=== PATIENT | female | born 1935 | race Caucasian/White ===

== ENCOUNTER 2019-09-20 16:11 | Inpatient (IN) | payer OTHER ==
--- NOTE | 2019-09-20 17:33 | PDOC ---
History of Present Illness - History of Present Illness Initial Comments: 09/20/19 18:10 Ms. Pat is an y/o F w/PMH of HTN, OA, peripheral neuropathy, spinal stenosis , and "parkinson's- like" tremor presents to the ER w/ chills and worsening tremor. The patient states she was in her usual state of health until this afternoon around 12pm when she suddenly felt very cold and her tremors became much worse to the point where she couldn't even speak. She called her reading professor, Dr. Salazar, who recommended she come to the hospital. The patient states she felt feverish, but on checking her temperature she was afebrile. She also endorses some post nasal drip. She denies recent sick contacts, cough, throat pain, nausea, vomiting, stomach pain, cough, SOB, chest pain, dizziness or heart palpiations. 09/20/19 18:16 <Sofi Ramirez - Last Filed: 09/21/19 00:30> <Eva Barrett - Last Filed: 09/21/19 00:57> - General Chief Complaint: Blood Pressure Problem Stated Complaint: HIGH BP Time Seen by Provider: 09/20/19 17:33 Past History - Travel Traveled outside of the country in the last 30 days: No Close contact w/someone who was outside of country & ill: No - Past Medical History CVA: Yes (TIA) COPD: No HTN: Yes Hypercholesterolemia: Yes - Surgical History Abdominal Surgery: Yes Cholecystectomy: Yes - Immunization History Immunization Up to Date: Yes - Psycho Social/Smoking Cessation Hx Smoking Status: No Smoking History: Never smoked Have you smoked in the past 12 months: No Number of Cigarettes Smoked Daily: 0 Information on smoking cessation initiated: No Hx Alcohol Use: No Drug/Substance Use Hx: No Substance Use Type: None Hx Substance Use Treatment: No <Sofi Ramirez - Last Filed: 09/21/19 00:30> <Eva Barrett - Last Filed: 09/21/19 00:57> - Past Medical History Allergies/Adverse Reactions: Allergies Allergy/AdvReac Type Severity Reaction Status Date / Time diazepam [From Valium] AdvReac HYPER/ANXIO Verified 01/24/18 10:42 US Home Medications: Ambulatory Orders Hydrochlorothiazide 25 mg PO DAILY 08/21/12 Metoprolol Succinate [Toprol XL -] 25 mg PO DAILY 08/21/12 Simvastatin [Zocor -] 20 mg PO HS 08/21/12 Diclofenac Sodium 100 mg PO BID 01/24/18 Gabapentin [Neurontin -] 600 mg PO DAILY 01/24/18 Apixaban [Eliquis] 5 mg PO TID 09/20/19 Review of Systems - Review of Systems Able to Perform ROS?: Yes Is the patient limited Nepali proficient: No Constitutional: Yes: Chills, Malaise. No: Diaphoresis, Fever HEENTM: No: Eye Pain, Recent change in vision, Throat Pain Respiratory: No: Cough, Shortness of Breath Cardiac (ROS): No: Chest Pain, Lightheadedness, Palpitations ABD/GI: No: Abdominal Distended, Abd. Pain w/ defecation, Constipated, Diarrhea : No: Burning, Dysuria, Discharge, Flank Pain, Hematuria Musculoskeletal: No: Back Pain, Muscle Pain, Muscle Weakness Integumentary: No: Bruising, Change in Color, Change in Hair/Nails Neurological: No: Headache, Numbness, Paresthesia, Seizure, Tingling Endocrine: No: Flushing, Intolerance to Cold, Intolerance to Heat All Other Systems: Reviewed and Negative <Sofi Ramirez - Last Filed: 09/21/19 00:30> *Physical Exam - Vital Signs Last Vital Signs Temp Pulse Resp BP Pulse Ox 98.2 F 103 H 17 147/84 100 09/20/19 16:45 09/20/19 16:45 09/20/19 16:45 09/20/19 16:45 09/20/19 16:45 - Physical Exam General Appearance: Yes: Nourished, Appropriately Dressed, Obese. No: Apparent Distress HEENT: positive: DORITA, Normal ENT Inspection, Normal Voice, Pharynx Normal Neck: positive: Trachea midline, Supple. negative: Tender Respiratory/Chest: positive: Lungs Clear, Normal Breath Sounds. negative: Respiratory Distress, Accessory Muscle Use, Crackles, Rales, Wheezing Cardiovascular: positive: S1, S2, Tachycardia, Irregularly Irregular. negative : Murmur Gastrointestinal/Abdominal: positive: Normal Bowel Sounds, Soft. negative: Tender, Distended, Guarding, Rebound Musculoskeletal: positive: Normal Inspection. negative: CVA Tenderness Extremity: positive: Normal Capillary Refill, Normal Range of Motion, Tender, Pedal Edema (1+ pitting edema to the mid peter bilaterally, skin with venous stasis changes), Calf Tenderness (bilaterally to palpation), Other Integumentary: positive: Normal Color, Dry, Warm, Other (venous stasis changes in bilateral lower extremity) Neurologic: positive: orchestrator II-XII NML intact, Fully Oriented, Alert, Normal Mood/ Affect, Normal Response <Sofi Ramirez - Last Filed: 09/21/19 00:30> - Vital Signs Last Vital Signs Temp Pulse Resp BP Pulse Ox 98.8 F 116 H 18 113/77 95 09/20/19 23:07 09/20/19 23:07 09/20/19 23:07 09/21/19 00:05 09/20/19 23:07 <Eva Barrett - Last Filed: 09/21/19 00:57> ED Treatment Course - LABORATORY CBC & Chemistry Diagram: 09/20/19 17:35 09/20/19 17:35 <Sofi Ramirez - Last Filed: 09/21/19 00:30> - LABORATORY CBC & Chemistry Diagram: 09/20/19 17:35 09/20/19 17:35 - ADDITIONAL ORDERS Additional order review: Laboratory Results 09/20/19 09/20/19 09/20/19 21:15 17:35 17:35 PT with INR INR PTT (Actin FS) Sodium 138 Potassium 3.9 Chloride 101 Carbon Dioxide 27 Anion Gap 10 BUN 19.2 H Creatinine 0.9 Est GFR (CKD-EPI)AfAm 68.05 Est GFR (CKD-EPI)NonAf 58.71 Random Glucose 104 Calcium 9.4 Total Bilirubin 1.0 AST 29 ALT 19 Alkaline Phosphatase 92 B-Natriuretic Peptide 907.5 H Total Protein 7.1 Albumin 3.6 Urine Color Yellow Urine Appearance Clear Urine pH 5.5 D Ur Specific [place] 1.017 Urine Protein Negative Urine Glucose (UA) Negative Urine Ketones Trace H Urine Blood Negative Urine Nitrite Negative Urine Bilirubin Negative Urine Urobilinogen 1.0 Ur Leukocyte Esterase Negative 09/20/19 17:35 PT with INR 16.10 H INR 1.36 H PTT (Actin FS) 36.8 H Sodium Potassium Chloride Carbon Dioxide Anion Gap BUN Creatinine Est GFR (CKD-EPI)AfAm Est GFR (CKD-EPI)NonAf Random Glucose Calcium Total Bilirubin AST ALT Alkaline Phosphatase B-Natriuretic Peptide Total Protein Albumin Urine Color Urine Appearance Urine pH Ur Specific [place] Urine Protein Urine Glucose (UA) Urine Ketones Urine Blood Urine Nitrite Urine Bilirubin Urine Urobilinogen Ur Leukocyte Esterase 09/20/19 17:35 RBC 5.15 MCV 76.8 L MCHC 31.7 L RDW 16.5 H MPV 9.5 Neutrophils % 92.7 H D Lymphocytes % 4.4 L D Monocytes % 2.3 L Eosinophils % 0.1 D Basophils % 0.5 - Medications Given in the ED: ED Medications Discontinued Medications Generic Name Dose Route Start Last Admin Trade Name Freq PRN Reason Stop Dose Admin Diltiazem HCl 10 mg 09/20/19 17:37 09/20/19 17:47 Cardizem Injection - IVPUSH 09/20/19 17:38 Not Given ONCE ONE Diltiazem HCl 20 mg 09/20/19 17:45 09/20/19 17:47 Cardizem Injection - IVPUSH 09/20/19 17:46 20 mg ONCE ONE Administration <Eva Barrett - Last Filed: 09/21/19 00:57> Medical Decision Making - Medical Decision Making 09/20/19 19:29 Ms. Pat is an y/o F w/PMH of HTN, OA, peripheral neuropathy, spinal stenosis , and "parkinson's- like" tremor presents to the ER w/ chills and worsening tremor. Pt found to be in Afib with RVR, concern for infectious process given HPI. Will obtain - CBC - CMP - PT/PTT/INR - BNP - UA/ Ucx - EKG - CXR - 20mg IVPush cardizem for afib 09/20/19 19:37 09/21/19 00:29 - CXR unremarkable UA without concern for UTI, labs without evidence of infection. Pt likely to be placed on tele-obs to monitor her afib with RVR. <Sofi Ramirez - Last Filed: 09/21/19 00:30> Discharge <Sofi Ramirez - Last Filed: 09/21/19 00:30> - Discharge Information Problems reviewed: Yes - Admission Yes <Eva Barrett - Last Filed: 09/21/19 00:57> - Discharge Information Clinical Impression/Diagnosis: CHF (congestive heart failure), Atrial fibrillation with RVR - Follow up/Referral Referrals: Kathi Melo [Primary Care Provider] - - Patient Discharge Instructions - Post Discharge Activity
[2019-09-20] MEDS ORDERED: dilTIAZem HCL 50 MG/10 ML - 10 ML VIAL IVPUSH ONE ×2 (17:37→17:45)
[2019-09-20] MEDS ORDERED: dilTIAZem HCL 125 MG/25 ML - 25 ML VIAL ONE (17:42)
[2019-09-20 17:55] LABS: BASO % 0.5 % (0-2.0); EOS % 0.1 % (0-4.5); HEMATOCRIT 39.5 % (32.4-45.2); HEMOGLOBIN 12.5 GM/dL (10.7-15.3); LYMPH % 4.4 % (8-40); MCH 24.3 pg (25.7-33.7); MCHC 31.7 g/dl (32.0-36.0); MEAN CELL VOLUME 76.8 fl (80-96); MEAN PLT VOLUME 9.5 fl (7.5-11.1); MONO % 2.3 % (3.8-10.2); NEUT % 92.7 % (42.8-82.8); PLATELET COUNT 277 K/MM3 (134-434); RBC 5.15 M/mm3 (3.60-5.2); RDW 16.5 % (11.6-15.6); WHITE BLOOD COUNT 9.1 K/mm3 (4.0-10.0)
[2019-09-20 18:09] LABS: INR 1.36 (0.83-1.09); PROTHROMBIN TIME (PATIENT) 16.1 SEC (9.7-13.0)
[2019-09-20 18:11] LABS: ACTIVATED PTT 36.8 SECONDS (25.2-36.5)
[2019-09-20 18:44] LABS: ALBUMIN 3.6 g/dl (3.4-5.0); BLOOD UREA NITROGEN 19.2 mg/dL (7-18); CALCIUM 9.4 mg/dL (8.5-10.1); CREATININE 0.9 mg/dL (0.55-1.3); POTASSIUM 3.9 mmol/L (3.5-5.1); TOT PROT 7.1 g/dl (6.4-8.2)
--- NOTE | 2019-09-20 19:09 | PDOC ---
Documentation entered by Domingo Goodwin SCRIBE, acting as scribe for Eva Barrett MD. Eva Barrett MD: This documentation has been prepared by the Buddy posadas Daniel, SCRIBE, under my direction and personally reviewed by me in its entirety. I confirm that the documentation accurately reflects all work, treatment, procedures, and medical decision making performed by me. Attending Attestation - Resident Resident Name: Sofi Ramirez - ED Attending Attestation I have performed the following: I have examined & evaluated the patient, The case was reviewed & discussed with the resident, I agree w/resident's findings & plan, Exceptions are as noted - HPI HPI: 09/20/19 18:25 The patient is an 84 year old female with a past medical history of HTN, spinal stenosis, OA, and tremors here today for evaluation of chills and worsening tremors. The patient reports that around noon today she began to feel chills, her baseline tremor became much more severe, and she had some generalized weakness. She states that she called Dr. Odell who advised her to come to the ER for evaluation. Patient denies headache, lightheadedness. Denies fever. Denies chest pain, shortness of breath. Denies nausea, vomiting, diarrhea, abdominal pain. Allergies: diazepam PCP: Kathi Melo [employer]cher Aircraft: Christiano Odell - Physicial Exam PE: 09/20/19 19:06 awake alert dry mucous membranes. lungs clear bilat heart irreg tachycardia. no mrg abd soft nt nd ext bilat pitting edema. 3+ cool. 1 + dp pulses biat. nuero alert oriented. - Medical Decision Making 09/20/19 19:06 84 yo F h/o afib, htn hld venous stasis baseine tremor here with worsening shakes, chills, fatigue and decreased po intake, denies cough no fver. no abd pain no vomiting. denies urinary complaints. leg are baseline swollen. today on arrival to ED pt found to be in AFib with RVR. differential infection such as uti, pna, rigors. worsening tremor. electrolyte abnoramlity mi. plan ekg labs trop cxr ua . rectal temp. pt with afib with RVR given 20 mg IV diltiazem for heart rate 148 improvd to 107 . awaiting labs results. will likely nee to be admitted to telemetry. Heart Score/ECG Review #1 General ECG Interpretation: Normal Intervals, No acute ischemic changes Compared to previous ECG there are: Other (afib r with RVR rate 140 bpm, no st t wave changes.)
[2019-09-20 19:15] LABS: ANISOCYTOSIS 1+; PLATELET ESTIMATE NORMAL
[2019-09-20 21:28] LABS: PH,URINE 5.5 (5.0-8.0); URINE APPEARANCE CLEAR; URINE BILIRUBIN NEGATIVE (NEGATIVE); URINE COLOR YELLOW; URINE GLUCOSE (UA) NEGATIVE (NEGATIVE); URINE KETONE TRACE (NEGATIVE); URINE LEUK ESTERASE NEGATIVE (NEGATIVE); URINE NITRITE NEGATIVE (NEGATIVE); URINE PROTEIN NEGATIVE (NEGATIVE)
--- NOTE | 2019-09-20 23:29 | PN ---
Teaching Attending Note Name of Resident: Zain Greer ATTENDING PHYSICIAN STATEMENT I saw and evaluated the patient. I reviewed the resident's note and discussed the case with the resident. I agree with the resident's findings and plan as documented. SUBJECTIVE: 84-year-old woman with a history of atrial fibrillation on anticoagulation hypertension, osteoarthritis, peripheral neuropathy, spinal stenosis who is complaining of chills and generalized weakness which started on 09/20 in the afternoon. Patient presented to hospital and was found to be afebrile however she was also found to be tachycardic OBJECTIVE: Last Vital Signs Temp Pulse Resp BP Pulse Ox 97.9 F 101 H 18 144/66 96 09/21/19 04:34 09/21/19 04:34 09/21/19 04:34 09/21/19 04:34 09/21/19 04:34 GENERAL: Well developed, well nourished. Awake and alert. No acute distress.Appears nontoxic HEENT: Normocephalic, atraumatic. PERRLA, EOMI. No conjunctival pallor. Sclera are non- icteric. Moist mucous membranes. Oropharynx is clear. NECK: Supple. Full ROM. No JVD. Carotid pulses 2+ and symmetric, without bruits. No thyromegaly. No lymphadenopathy. CARDIOVASCULAR: Irregularly irregular, tachycardia, no murmurs appreciated PULMONARY: No evidence of respiratory distress. Lungs clear to auscultation bilaterally. No wheezing, rales or rhonchi. ABDOMINAL: Soft. Non-tender. Non-distended. No rebound or guarding. No organomegaly. Normoactive bowel sounds. MUSCULOSKELETAL Normal range of motion at all joints. No bony deformities or tenderness. No CVA tenderness. EXTREMITIES: No cyanosis. No clubbing. No edema. No calf tenderness. SKIN: Warm and dry. Normal capillary refill. No rashes. No jaundice. PSYCHIATRIC: Cooperative. Good eye contact. Appropriate mood and affect. Abnormal Lab Results 09/20/19 09/20/19 09/20/19 17:35 17:35 17:35 MCV 76.8 L MCH 24.3 L MCHC 31.7 L RDW 16.5 H Absolute Neuts (auto) 8.5 H Neutrophils % 92.7 H D Neutrophils % (Manual) 95.0 H Lymphocytes % 4.4 L D Lymphocytes % (Manual) 1.0 L Monocytes % 2.3 L Monocytes % (Manual) 2 L PT with INR 16.10 H INR 1.36 H PTT (Actin FS) 36.8 H BUN 19.2 H B-Natriuretic Peptide Urine Ketones 09/20/19 09/20/19 17:35 21:15 MCV MCH MCHC RDW Absolute Neuts (auto) Neutrophils % Neutrophils % (Manual) Lymphocytes % Lymphocytes % (Manual) Monocytes % Monocytes % (Manual) PT with INR INR PTT (Actin FS) BUN B-Natriuretic Peptide 907.5 H Urine Ketones Trace H Imaging studies reviewed ASSESSMENT AND PLAN: A. fib with RVRrate is better controlled after Cardizem IV push Would continue home dose Eliquis Monitor heart rate closely Resume metoprolol Resume all chronic medications
--- NOTE | 2019-09-21 00:47 | HP ---
CHIEF COMPLAINT: SOB+ increasing tremors PCP: HISTORY OF PRESENT ILLNESS: Pt is an 84 y/o F with a significant PMH of HTN, OA, peripheral neuropathy, spinal stenosis, and " Parkinson's like tremor" who presented to [facility] due to sudden onset chills and worsening tremor. Pt abruptly began to experience chills and an exacerbation of her tremor around noon today. Pt called her High Lift Mule Operator (Dr Odell) who advised her to come to our emergency department for further work-up and treatment. Pt endorses a headache. Denies chest pain, shortness of breath, nausea/vomiting, LOC, or recent illness. ER course was notable for: (1) afib r with RVR rate 140 bpm, no st t wave changes (2) Cardizem 20 mg IVPUSH given to pt (3) PAST MEDICAL HISTORY: as above PAST SURGICAL HISTORY: Social History: Smoking: Denies Alcohol: Denies Drugs: denies Allergies diazepam [From Valium] Adverse Reaction (Verified 01/24/18 10:42) HYPER/ANXIOUS HOME MEDICATIONS: Home Medications Medication Instructions Recorded Hydrochlorothiazide 25 mg PO DAILY 08/21/12 Metoprolol Succinate [Toprol XL -] 25 mg PO DAILY 08/21/12 Simvastatin [Zocor -] 20 mg PO HS 08/21/12 Diclofenac Sodium 100 mg PO BID 01/24/18 Gabapentin [Neurontin -] 600 mg PO DAILY 01/24/18 Apixaban [Eliquis] 5 mg PO TID 09/20/19 REVIEW OF SYSTEMS CONSTITUTIONAL: present: chills HEENT: Absent: rhinorrhea, nasal congestion, throat pain, throat swelling, difficulty swallowing, mouth swelling, ear pain, eye pain, visual changes CARDIOVASCULAR: Absent: chest pain, syncope, palpitations, irregular heart rate, lightheadedness , peripheral edema RESPIRATORY: Absent: cough, shortness of breath, dyspnea with exertion, orthopnea, wheezing, stridor, hemoptysis GASTROINTESTINAL: Absent: abdominal pain, abdominal distension, nausea, vomiting, diarrhea, constipation, melena, hematochezia GENITOURINARY: Absent: dysuria, frequency, urgency, hesitancy, hematuria, flank pain, genital pain MUSCULOSKELETAL: Absent: myalgia, arthralgia, joint swelling, back pain, neck pain SKIN: Absent: rash, itching, pallor HEMATOLOGIC/IMMUNOLOGIC: Absent: easy bleeding, easy bruising, lymphadenopathy, frequent infections ENDOCRINE: Absent: unexplained weight gain, unexplained weight loss, heat intolerance, cold intolerance NEUROLOGIC: Absent: headache, focal weakness or paresthesias, dizziness, unsteady gait, seizure, mental status changes, bladder or bowel incontinence PSYCHIATRIC: Absent: anxiety, depression, suicidal or homicidal ideation, hallucinations. PHYSICAL EXAMINATION Vital Signs - 24 hr 09/20/19 09/20/19 09/20/19 16:45 18:02 18:15 Temperature 98.2 F 98.6 F 98.6 F Pulse Rate 103 H Pulse Rate [ 98 H Apical] Pulse Rate [ Right Radial] Respiratory 17 17 Rate Blood Pressure 147/84 Blood Pressure [Left Arm] Blood Pressure 143/73 [Right Arm] O2 Sat by Pulse 100 99 Oximetry (%) 09/20/19 09/21/19 23:07 00:05 Temperature 98.8 F Pulse Rate Pulse Rate [ Apical] Pulse Rate [ 116 H Right Radial] Respiratory 18 Rate Blood Pressure Blood Pressure 130/59 L [Left Arm] Blood Pressure 104/45 L 113/77 [Right Arm] O2 Sat by Pulse 95 Oximetry (%) GENERAL: NAD HEAD: Normal with no signs of trauma. EYES: EOMI Sclera Clear EARS, NOSE, THROAT: MMM NECK: Supple LUNGS: CTA b/l HEART: Irregularly irregular S1S2 ABDOMEN:Soft NDNT LOWER EXTREMITIES: 3+ pitting edema bilaterally. Left lower extremity warmth NEUROLOGICAL: Cranial nerves II-XII intact. Laboratory Results - last 24 hr 09/20/19 09/20/19 09/20/19 17:35 17:35 17:35 WBC 9.1 RBC 5.15 Hgb 12.5 Hct 39.5 MCV 76.8 L MCH 24.3 L MCHC 31.7 L RDW 16.5 H Plt Count 277 MPV 9.5 Absolute Neuts (auto) 8.5 H Neutrophils % 92.7 H D Neutrophils % (Manual) 95.0 H Band Neutrophils % 0.0 Lymphocytes % 4.4 L D Lymphocytes % (Manual) 1.0 L Monocytes % 2.3 L Monocytes % (Manual) 2 L Eosinophils % 0.1 D Eosinophils % (Manual) 0.0 Basophils % 0.5 Basophils % (Manual) 1.0 Myelocytes % (Man) 0 Promyelocytes % (Man) 0 Blast Cells % (Manual) 0 Nucleated RBC % 0 Metamyelocytes 0 Hypochromia 1+ Platelet Estimate Normal Anisocytosis 1+ PT with INR 16.10 H INR 1.36 H PTT (Actin FS) 36.8 H Sodium 138 Potassium 3.9 Chloride 101 Carbon Dioxide 27 Anion Gap 10 BUN 19.2 H Creatinine 0.9 Est GFR (CKD-EPI)AfAm 68.05 Est GFR (CKD-EPI)NonAf 58.71 Random Glucose 104 Calcium 9.4 Total Bilirubin 1.0 AST 29 ALT 19 Alkaline Phosphatase 92 B-Natriuretic Peptide Total Protein 7.1 Albumin 3.6 Urine Color Urine Appearance Urine pH Ur Specific [place] Urine Protein Urine Glucose (UA) Urine Ketones Urine Blood Urine Nitrite Urine Bilirubin Urine Urobilinogen Ur Leukocyte Esterase 09/20/19 09/20/19 17:35 21:15 WBC RBC Hgb Hct MCV MCH MCHC RDW Plt Count MPV Absolute Neuts (auto) Neutrophils % Neutrophils % (Manual) Band Neutrophils % Lymphocytes % Lymphocytes % (Manual) Monocytes % Monocytes % (Manual) Eosinophils % Eosinophils % (Manual) Basophils % Basophils % (Manual) Myelocytes % (Man) Promyelocytes % (Man) Blast Cells % (Manual) Nucleated RBC % Metamyelocytes Hypochromia Platelet Estimate Anisocytosis PT with INR INR PTT (Actin FS) Sodium Potassium Chloride Carbon Dioxide Anion Gap BUN Creatinine Est GFR (CKD-EPI)AfAm Est GFR (CKD-EPI)NonAf Random Glucose Calcium Total Bilirubin AST ALT Alkaline Phosphatase B-Natriuretic Peptide 907.5 H Total Protein Albumin Urine Color Yellow Urine Appearance Clear Urine pH 5.5 D Ur Specific [place] 1.017 Urine Protein Negative Urine Glucose (UA) Negative Urine Ketones Trace H Urine Blood Negative Urine Nitrite Negative Urine Bilirubin Negative Urine Urobilinogen 1.0 Ur Leukocyte Esterase Negative ASSESSMENT/PLAN: Pt is an 84 y/o F with a significant PMH of HTN, OA, peripheral neuropathy, spinal stenosis, and " Parkinson's like tremor" who presented to [facility] due to sudden onset chills and worsening tremor. #A-fib w/RVR -Atrial Fibrilation to 140 BPM. -Pt given Cardizem 20 IVPUSH with good effect. -will continue home Eliquis -Resume Metoprolol -tele monitoring -Cardiology consult Dr Odell. Recs appreciated. #FEN -No Fluids -Monitor Electrolytes -Sodium controlled Diet #DVT ppx: -Eliquis #Dispo -Tele Visit type - Emergency Visit Emergency Visit: Yes ED Registration Date: 09/21/19 Care time: The patient presented to the Emergency Department on the above date and was hospitalized for further evaluation of their emergent condition. - New Patient This patient is new to me today: Yes Date on this admission: 09/21/19 - Critical Care Critical Care patient: No ATTENDING PHYSICIAN STATEMENT I saw and evaluated the patient. I reviewed the resident's note and discussed the case with the resident. I agree with the resident's findings and plan as documented. SUBJECTIVE: OBJECTIVE: ASSESSMENT AND PLAN:
[2019-09-21 05:00] VITALS: BMI 40.4
[2019-09-21] MEDS ORDERED: APIXABAN 5 MG TABLET PO SCH (06:00)
[2019-09-21 07:45] LABS: BASO % 0.3 % (0-2.0); EOS % 0.3 % (0-4.5); HEMOGLOBIN 10.6 GM/dL (10.7-15.3); LYMPH % 10.7 % (8-40); MCH 24.2 pg (25.7-33.7); MCHC 32.1 g/dl (32.0-36.0); MEAN CELL VOLUME 75.4 fl (80-96); MEAN PLT VOLUME 9.5 fl (7.5-11.1); MONO % 8.5 % (3.8-10.2); NEUT % 80.2 % (42.8-82.8); PLATELET COUNT 228 K/MM3 (134-434); RBC 4.38 M/mm3 (3.60-5.2); RDW 16.3 % (11.6-15.6); WHITE BLOOD COUNT 8.6 K/mm3 (4.0-10.0)
[2019-09-21 08:04] LABS: INR 1.49 (0.83-1.09); PROTHROMBIN TIME (PATIENT) 17.7 SEC (9.7-13.0)
[2019-09-21 08:06] LABS: ACTIVATED PTT 36.4 SECONDS (25.2-36.5)
[2019-09-21 08:09] LABS: ALBUMIN 2.9 g/dl (3.4-5.0); BILIRUBIN,TOTAL 1.1 mg/dL (0.2-1); CALCIUM 8.6 mg/dL (8.5-10.1); CREATININE 0.8 mg/dL (0.55-1.3); MAGNESIUM 2.1 mg/dL (1.8-2.4); PHOSPHOROUS 3.1 mg/dL (2.5-4.9); POTASSIUM 3.2 mmol/L (3.5-5.1); TOT PROT 5.5 g/dl (6.4-8.2)
[2019-09-21] MEDS ORDERED: metoPROLOL SUCCINATE 25 MG TAB.SR.24H (FP) PO SCH (10:00)
[2019-09-21] MEDS ORDERED: HYDROCHLOROTHIAZIDE 25 MG TABLET (FP) PO SCH (10:00)
[2019-09-21] MEDS: APIXABAN 5 MG TABLET PO SCH ×2 (11:00→21:51)
[2019-09-21] MEDS: GABAPENTIN 300 MG CAPSULE (FP) PO SCH (11:00)
--- NOTE | 2019-09-21 11:15 | CON.CARD ---
Consult Consult Specialty:: Cardiology Referred by:: Hospitalist Medicine Reason for Consultation:: Rapid afib - History of Present Illness Chief Complaint: Chills, fatigue, tremors History of Present Illness: 84-year-old woman with a history of atrial fibrillation on anticoagulation hypertension, peripheral neuropathy, spinal stenosis, lumbosacral disease, tremors who is complaining of chills, worsening tremors from baseline and generalized weakness which started on 09/20 in the afternoon. Patient presented to hospital and was found to be afebrile however she was also found to be in rapid 140s rate-controlled with IV Cardizem. Patient chest pain, near or true syncope, shortness of breath, fevers, palpitations, orthopnea, PND or LE edema, reports medication compliance. Last office visit 04/22/2019. Chills, tremors and fatigue improving with rate-control. Allergies: diazepam PCP: Kathi Melo/Jimy Ariza Truck Driver Heavy: Christiano Odell - History Source History Provided By: Patient Limitations to Obtaining History: No Limitations - Alcohol/Substance Use Hx Alcohol Use: No - Smoking History Smoking history: Never smoked Have you smoked in the past 12 months: No Aproximately how many cigarettes per day: 0 Home Medications - Allergies Allergies/Adverse Reactions: Allergies Allergy/AdvReac Type Severity Reaction Status Date / Time diazepam [From Valium] AdvReac HYPER/ANXIO Verified 01/24/18 10:42 US - Home Medications Home Medications: Ambulatory Orders Hydrochlorothiazide 25 mg PO DAILY 08/21/12 Metoprolol Succinate [Toprol XL -] 25 mg PO DAILY 08/21/12 Simvastatin [Zocor -] 20 mg PO HS 08/21/12 Diclofenac Sodium 100 mg PO BID 01/24/18 Gabapentin [Neurontin -] 600 mg PO DAILY 01/24/18 Apixaban [Eliquis] 5 mg PO BID 09/21/19 Review of Systems - Review of Systems Constitutional: reports: Chills, Weakness Neurological: reports: Tremors Vital Signs: Vital Signs Temperature 97.9 F 09/21/19 04:34 Pulse Rate 101 H 09/21/19 04:34 Respiratory Rate 18 09/21/19 04:34 Blood Pressure 144/66 09/21/19 04:34 O2 Sat by Pulse Oximetry (%) 96 11/30/19 04:34 Constitutional: Yes: No Distress, Calm Neck: Yes: Supple Respiratory: Yes: Regular, CTA Bilaterally Gastrointestinal: Yes: Normal Bowel Sounds, Soft Cardiovascular: Yes: Tachycardia, Pulse Irregular JVD: No Carotid Bruit: No Heart Sounds: Yes: S1, S2 Edema: Yes Edema: LLE: Trace, RLE: Trace - Other Data Labs, Other Data: CBC, BMP 09/21/19 05:50 09/21/19 05:50 INR, PTT INR 1.49 (0.83-1.09) H 09/21/19 05:50 Troponin, BNP 09/20/19 17:35 B-Natriuretic Peptide 907.5 H Troponin, BNP 09/20/19 17:35 B-Natriuretic Peptide 907.5 H Afib @ 140 Echo: Report Reviewed Ejection Fraction %: LVEF > or = 40 % Imaging - Results Chest X-ray: Report Reviewed (NAD) Problem List - Problems (1) Hyperlipidemia Code(s): E78.5 - HYPERLIPIDEMIA, UNSPECIFIED Qualifiers: Hyperlipidemia type: pure hypercholesterolemia Qualified Code(s): E78.00 - Pure hypercholesterolemia, unspecified; E78.0 - Pure hypercholesterolemia (2) Atrial fibrillation with RVR Code(s): I48.91 - UNSPECIFIED ATRIAL FIBRILLATION (3) Diastolic dysfunction Code(s): I51.89 - OTHER ILL-DEFINED HEART DISEASES Assessment/Plan 05/20/2019 Echo: Normal LV size with mod LVH and normal LV fxn, mild LAE, normal RA, normal RV size and fxn, tr MR, mild TR RVSP 34 mmHg, tr DE 1. Symptomatic rapid persistent atrial fibrillation 2. Hypertension 3. Hyperlipidemia 4. Spinal stenosis with lumbar radiculopathy requiring wheelchair and walker assistance 5. Chronic lymphedema P:1: Change metoprolol to sotalol 80 bid with IV Cardizem as needed for rate- control, check daily QTC x 2 days, d/c HCTZ and replete K, continue Eliquis 5 bid, Zocor 20 qhs 2. May require DCCV if rate-control is inadequate, if compliance with Eliquis is assured, LISETTE-guidance will not be needed 3. Thank you for consultative opportunity
[2019-09-21] MEDS ORDERED: dilTIAZem HCL 50 MG/10 ML - 10 ML VIAL IVPUSH PRN (11:37)
[2019-09-21] MEDS ORDERED: POTASSIUM CHLORIDE ORAL LIQUID 20 MEQ/15 ML PO ONE (11:42)
--- NOTE | 2019-09-21 13:32 | PN ---
Progress Note (short form) - Note Progress Note: SUBJECTIVE: Feeling better, less tremors. No chest pain/palpitations/ lightheadedness. Feeling less weak. No fever/chills. OBJECTIVE: Afebrile, Hemodynamically Stable. AAO x 3 Last Vital Signs Temp Pulse Resp BP Pulse Ox 98.3 F 105 H 18 97/63 97 09/21/19 09:00 09/21/19 09:00 09/21/19 09:00 09/21/19 09:00 09/21/19 09:00 HEENT - Atraumatic, Normocephalic Heart - S1, S2, irregular Lungs - clear to auscultation Abdomen - soft, non-tender. Bowel Sounds normal. Extremities - Chronic venous stasis with skin changes. Laboratory Results - last 24 hr 09/20/19 09/20/19 09/20/19 17:35 17:35 17:35 WBC 9.1 RBC 5.15 Hgb 12.5 Hct 39.5 MCV 76.8 L MCH 24.3 L MCHC 31.7 L RDW 16.5 H Plt Count 277 MPV 9.5 Absolute Neuts (auto) 8.5 H Neutrophils % 92.7 H D Neutrophils % (Manual) 95.0 H Band Neutrophils % 0.0 Lymphocytes % 4.4 L D Lymphocytes % (Manual) 1.0 L Monocytes % 2.3 L Monocytes % (Manual) 2 L Eosinophils % 0.1 D Eosinophils % (Manual) 0.0 Basophils % 0.5 Basophils % (Manual) 1.0 Myelocytes % (Man) 0 Promyelocytes % (Man) 0 Blast Cells % (Manual) 0 Nucleated RBC % 0 Metamyelocytes 0 Hypochromia 1+ Platelet Estimate Normal Anisocytosis 1+ PT with INR 16.10 H INR 1.36 H PTT (Actin FS) 36.8 H Sodium 138 Potassium 3.9 Chloride 101 Carbon Dioxide 27 Anion Gap 10 BUN 19.2 H Creatinine 0.9 Est GFR (CKD-EPI)AfAm 68.05 Est GFR (CKD-EPI)NonAf 58.71 Random Glucose 104 Calcium 9.4 Phosphorus Magnesium Total Bilirubin 1.0 AST 29 ALT 19 Alkaline Phosphatase 92 B-Natriuretic Peptide Total Protein 7.1 Albumin 3.6 Urine Color Urine Appearance Urine pH Ur Specific Everetts Urine Protein Urine Glucose (UA) Urine Ketones Urine Blood Urine Nitrite Urine Bilirubin Urine Urobilinogen Ur Leukocyte Esterase 09/20/19 09/20/19 09/21/19 17:35 21:15 05:50 WBC 8.6 RBC 4.38 Hgb 10.6 L Hct 33.0 D MCV 75.4 L MCH 24.2 L MCHC 32.1 RDW 16.3 H Plt Count 228 MPV 9.5 Absolute Neuts (auto) 6.9 Neutrophils % 80.2 Neutrophils % (Manual) Band Neutrophils % Lymphocytes % 10.7 D Lymphocytes % (Manual) Monocytes % 8.5 D Monocytes % (Manual) Eosinophils % 0.3 D Eosinophils % (Manual) Basophils % 0.3 Basophils % (Manual) Myelocytes % (Man) Promyelocytes % (Man) Blast Cells % (Manual) Nucleated RBC % 0 Metamyelocytes Hypochromia Platelet Estimate Anisocytosis PT with INR INR PTT (Actin FS) Sodium Potassium Chloride Carbon Dioxide Anion Gap BUN Creatinine Est GFR (CKD-EPI)AfAm Est GFR (CKD-EPI)NonAf Random Glucose Calcium Phosphorus Magnesium Total Bilirubin AST ALT Alkaline Phosphatase B-Natriuretic Peptide 907.5 H Total Protein Albumin Urine Color Yellow Urine Appearance Clear Urine pH 5.5 D Ur Specific Everetts 1.017 Urine Protein Negative Urine Glucose (UA) Negative Urine Ketones Trace H Urine Blood Negative Urine Nitrite Negative Urine Bilirubin Negative Urine Urobilinogen 1.0 Ur Leukocyte Esterase Negative 09/21/19 09/21/19 05:50 05:50 WBC RBC Hgb Hct MCV MCH MCHC RDW Plt Count MPV Absolute Neuts (auto) Neutrophils % Neutrophils % (Manual) Band Neutrophils % Lymphocytes % Lymphocytes % (Manual) Monocytes % Monocytes % (Manual) Eosinophils % Eosinophils % (Manual) Basophils % Basophils % (Manual) Myelocytes % (Man) Promyelocytes % (Man) Blast Cells % (Manual) Nucleated RBC % Metamyelocytes Hypochromia Platelet Estimate Anisocytosis PT with INR 17.70 H INR 1.49 H PTT (Actin FS) 36.4 Sodium 139 Potassium 3.2 L Chloride 103 Carbon Dioxide 28 Anion Gap 8 BUN 18.0 Creatinine 0.8 Est GFR (CKD-EPI)AfAm 78.47 Est GFR (CKD-EPI)NonAf 67.70 Random Glucose 84 Calcium 8.6 Phosphorus 3.1 Magnesium 2.1 Total Bilirubin 1.1 H AST 18 ALT 17 Alkaline Phosphatase 64 B-Natriuretic Peptide Total Protein 5.5 L Albumin 2.9 L Urine Color Urine Appearance Urine pH Ur Specific Everetts Urine Protein Urine Glucose (UA) Urine Ketones Urine Blood Urine Nitrite Urine Bilirubin Urine Urobilinogen Ur Leukocyte Esterase Current Medications Generic Name Dose Route Start Last Admin Trade Name Freq PRN Reason Stop Dose Admin Apixaban 5 mg 09/21/19 10:00 09/21/19 11:00 Eliquis - PO 5 mg BID CARLA Administration Atorvastatin Calcium 10 mg 09/21/19 22:00 Lipitor - PO HS CARLA Diltiazem HCl 10 mg 09/21/19 11:37 Cardizem Injection - IVPUSH Q4H PRN TACHYCARDIA Gabapentin 600 mg 09/21/19 10:00 09/21/19 11:00 Neurontin - PO 600 mg DAILY CARLA Administration Potassium Chloride 40 meq 09/21/19 22:00 K-Dur - PO 09/22/19 10:01 BID CARLA Sotalol HCl 80 mg 09/21/19 14:00 Betapace - PO BID [facility] Home Medications Medication Instructions Recorded Hydrochlorothiazide 25 mg PO DAILY 08/21/12 Metoprolol Succinate [Toprol XL -] 25 mg PO DAILY 08/21/12 Simvastatin [Zocor -] 20 mg PO HS 08/21/12 Diclofenac Sodium 100 mg PO BID 01/24/18 Gabapentin [Neurontin -] 600 mg PO DAILY 01/24/18 Apixaban [Eliquis] 5 mg PO BID 09/21/19 ASSESSMENT/PLAN: 84 year old female with history of HTN, HLD, atrial fibrillation on anticoagulation, osteoarthritis, Spinal stenosis with lumbar radiculopathy requiring wheelchair and walker assistance, peripheral neuropathy, essential tremor, presented with chills and generalized weakness, found to have Atrial Fibrillation with RVR (HR in 140s in ED). 1. Atrial fibrillation with RVR Required IV Cardizem Claims compliance with home medications including Metoprolol and Eliquis. Telemonitoring - persistent Afib Last Echo 05/20/2019 - Normal LV size with mod LVH and normal LV fxn. Evaluated by Cardiology - recommend changing Metoprolol to Sotalol, with regular QTc checks (every 2 days), possible DC Cardioversion if inadequate rate control. 2. HTN - HCTZ held. 3. HLD - Continue Simvastatin 4. Hyperkalemia - repleted. 5. Microcytic Anemia - will request Iron studies. DVT Px - on Eliquis. Visit type - Emergency Visit Emergency Visit: Yes ED Registration Date: 09/21/19 Care time: The patient presented to the Emergency Department on the above date and was hospitalized for further evaluation of their emergent condition. - New Patient This patient is new to me today: Yes Date on this admission: 09/21/19 - Critical Care Critical Care patient: No - Discharge Referral Referred to [facility] Med P.C.: No
[2019-09-21] MEDS: SOTALOL HCL 80 MG TABLET (FP) PO SCH ×2 (14:28→21:51)
[2019-09-21] MEDS: POTASSIUM CHLORIDE TABS 20 MEQ TABLET.ER (FP) PO SCH (21:51)
[2019-09-21] MEDS: ATORVASTATIN CA 10 MG TABLET (FP) PO SCH (21:51)
[2019-09-21] MEDS ORDERED: METOPROLOL TARTRATE 25 MG TABLET (FP) PO SCH (22:00)
[2019-09-22 08:52] LABS: EOS % 2.1 % (0-4.5); HEMATOCRIT 33.3 % (32.4-45.2); HEMOGLOBIN 10.5 GM/dL (10.7-15.3); LYMPH % 20.1 % (8-40); MCH 24.2 pg (25.7-33.7); MCHC 31.5 g/dl (32.0-36.0); MEAN CELL VOLUME 76.8 fl (80-96); MEAN PLT VOLUME 9.3 fl (7.5-11.1); MONO % 12.9 % (3.8-10.2); NEUT % 63.9 % (42.8-82.8); PLATELET COUNT 205 K/MM3 (134-434); RBC 4.34 M/mm3 (3.60-5.2); RDW 16.6 % (11.6-15.6); WHITE BLOOD COUNT 4.5 K/mm3 (4.0-10.0)
[2019-09-22 09:20] LABS: BLOOD UREA NITROGEN 16.4 mg/dL (7-18); CALCIUM 8.8 mg/dL (8.5-10.1); CREATININE 0.9 mg/dL (0.55-1.3)
[2019-09-22] MEDS: GABAPENTIN 300 MG CAPSULE (FP) PO SCH (10:00)
[2019-09-22] MEDS: SOTALOL HCL 80 MG TABLET (FP) PO SCH ×2 (10:00→21:44)
[2019-09-22] MEDS: APIXABAN 5 MG TABLET PO SCH ×2 (10:00→21:44)
[2019-09-22] MEDS: POTASSIUM CHLORIDE TABS 20 MEQ TABLET.ER (FP) PO SCH (10:00)
--- NOTE | 2019-09-22 13:15 | PN ---
Teaching Attending Note Name of Resident: Trisha Wilkinson ATTENDING PHYSICIAN STATEMENT I saw and evaluated the patient. I reviewed the resident's note and discussed the case with the resident. I agree with the resident's findings and plan as documented. SUBJECTIVE: Feeling better. No chest pain/palpitations/lightheadedness. Feeling less weak. No fever/chills. OBJECTIVE: Afebrile, Hemodynamically Stable. AAO x 3 Last Vital Signs Temp Pulse Resp BP Pulse Ox 98.7 F 89 20 119/61 97 09/22/19 10:00 09/22/19 10:00 09/22/19 10:00 09/22/19 10:00 09/22/19 09:00 Heart - S1, S2, irregular Lungs - clear to auscultation Abdomen - soft, non-tender. Bowel Sounds normal. Extremities - Chronic venous stasis with skin changes. Laboratory Results - last 24 hr 09/21/19 09/22/19 09/22/19 05:50 08:25 08:25 WBC 4.5 RBC 4.34 Hgb 10.5 L Hct 33.3 MCV 76.8 L MCH 24.2 L MCHC 31.5 L RDW 16.6 H Plt Count 205 MPV 9.3 Absolute Neuts (auto) 2.9 Neutrophils % 63.9 D Lymphocytes % 20.1 D Monocytes % 12.9 H Eosinophils % 2.1 D Basophils % 1.0 D Nucleated RBC % 0 Sodium 139 140 Potassium 3.2 L 4.0 Chloride 103 108 H Carbon Dioxide 28 25 Anion Gap 8 8 BUN 18.0 16.4 Creatinine 0.8 0.9 Est GFR (CKD-EPI)AfAm 78.47 68.05 Est GFR (CKD-EPI)NonAf 67.70 58.71 Random Glucose 84 114 H Calcium 8.6 8.8 Phosphorus 3.1 Magnesium 2.1 Iron TIBC Iron Saturation Unsaturated IBC Ferritin Total Bilirubin 1.1 H AST 18 ALT 17 Alkaline Phosphatase 64 Total Protein 5.5 L Albumin 2.9 L TSH 1.11 09/22/19 08:25 WBC RBC Hgb Hct MCV MCH MCHC RDW Plt Count MPV Absolute Neuts (auto) Neutrophils % Lymphocytes % Monocytes % Eosinophils % Basophils % Nucleated RBC % Sodium Potassium Chloride Carbon Dioxide Anion Gap BUN Creatinine Est GFR (CKD-EPI)AfAm Est GFR (CKD-EPI)NonAf Random Glucose Calcium Phosphorus Magnesium Iron 24 L TIBC 333 Iron Saturation 7 L Unsaturated IBC 309 H Ferritin 35.5 Total Bilirubin AST ALT Alkaline Phosphatase Total Protein Albumin TSH Current Medications Generic Name Dose Route Start Last Admin Trade Name Elton PRN Reason Stop Dose Admin Apixaban 5 mg 09/21/19 10:00 09/22/19 10:00 Eliquis - PO 5 mg BID CARLA Administration Atorvastatin Calcium 10 mg 09/21/19 22:00 09/21/19 21:51 Lipitor - PO 10 mg HS CARLA Administration Diltiazem HCl 10 mg 09/21/19 11:37 Cardizem Injection - IVPUSH Q4H PRN TACHYCARDIA Gabapentin 600 mg 09/21/19 10:00 09/22/19 10:00 Neurontin - PO 600 mg DAILY CARLA Administration Sotalol HCl 80 mg 09/21/19 14:00 09/22/19 10:00 Betapace - PO 80 mg BID CARLA Administration Home Medications Medication Instructions Recorded Hydrochlorothiazide 25 mg PO DAILY 08/21/12 Metoprolol Succinate [Toprol XL -] 25 mg PO DAILY 08/21/12 Simvastatin [Zocor -] 20 mg PO HS 08/21/12 Diclofenac Sodium 100 mg PO BID 01/24/18 Gabapentin [Neurontin -] 600 mg PO DAILY 01/24/18 Apixaban [Eliquis] 5 mg PO BID 09/21/19 ASSESSMENT/PLAN: 84 year old female with history of HTN, HLD, atrial fibrillation on anticoagulation, osteoarthritis, Spinal stenosis with lumbar radiculopathy requiring wheelchair and walker assistance, peripheral neuropathy, essential tremor, presented with chills and generalized weakness, found to have Atrial Fibrillation with RVR (HR in 140s in ED). 1. Atrial fibrillation with RVR Still with some episodes of RVR povernight Claims compliance with home medications including Metoprolol and Eliquis. Telemonitoring - persistent Afib Last Echo 05/20/2019 - Normal LV size with mod LVH and normal LV fxn. Evaluated by Cardiology - recommend changing Metoprolol to Sotalol, with regular QTc checks (every 2 days), possible DC Cardioversion if inadequate rate control. awaiting Cardio follow up and further recommendations. 2. HTN - HCTZ held. 3. HLD - Continue Simvastatin 4. Hyperkalemia - repleted. 5. Microcytic Anemia - sec to Iron deficiency. Iron Sat 7%. Will start FeSO4 supplementation but will need referral to GI for work-up as out-patient. DVT Px - on Eliquis.
--- NOTE | 2019-09-22 13:35 | PN ---
Physical Exam: SUBJECTIVE: Patient seen and examined in the morning. No acute events overnight. No complaints of chest pain, shortness of breath, abdominal pain, nausea, vomiting, diarrhea. OBJECTIVE: Vital Signs Period Temp Pulse Resp BP Sys/Mckinney Pulse Ox Last 24 Hr 97.5 F-99.0 F 89-115 20-20 114-125/61-73 96-97 GENERAL: The patient is awake, alert, and fully oriented, in no acute distress. HEAD: Normal with no signs of trauma. LUNGS: Breath sounds equal, clear to auscultation bilaterally, no wheezes. HEART: Irregularly irregular, no murmurs rubs or gallops ABDOMEN: Soft, nontender, nondistended, normoactive bowel sounds. EXTREMITIES: 2+ pulses, +2 edema, chronic venous stasis Laboratory Results - last 24 hr 09/21/19 09/22/19 09/22/19 05:50 08:25 08:25 WBC 4.5 RBC 4.34 Hgb 10.5 L Hct 33.3 MCV 76.8 L MCH 24.2 L MCHC 31.5 L RDW 16.6 H Plt Count 205 MPV 9.3 Absolute Neuts (auto) 2.9 Neutrophils % 63.9 D Lymphocytes % 20.1 D Monocytes % 12.9 H Eosinophils % 2.1 D Basophils % 1.0 D Nucleated RBC % 0 Sodium 139 140 Potassium 3.2 L 4.0 Chloride 103 108 H Carbon Dioxide 28 25 Anion Gap 8 8 BUN 18.0 16.4 Creatinine 0.8 0.9 Est GFR (CKD-EPI)AfAm 78.47 68.05 Est GFR (CKD-EPI)NonAf 67.70 58.71 Random Glucose 84 114 H Calcium 8.6 8.8 Phosphorus 3.1 Magnesium 2.1 Iron TIBC Iron Saturation Unsaturated IBC Ferritin Total Bilirubin 1.1 H AST 18 ALT 17 Alkaline Phosphatase 64 Total Protein 5.5 L Albumin 2.9 L TSH 1.11 09/22/19 08:25 WBC RBC Hgb Hct MCV MCH MCHC RDW Plt Count MPV Absolute Neuts (auto) Neutrophils % Lymphocytes % Monocytes % Eosinophils % Basophils % Nucleated RBC % Sodium Potassium Chloride Carbon Dioxide Anion Gap BUN Creatinine Est GFR (CKD-EPI)AfAm Est GFR (CKD-EPI)NonAf Random Glucose Calcium Phosphorus Magnesium Iron 24 L TIBC 333 Iron Saturation 7 L Unsaturated IBC 309 H Ferritin 35.5 Total Bilirubin AST ALT Alkaline Phosphatase Total Protein Albumin TSH Active Medications Generic Name Dose Route Start Last Admin Trade Name Freq PRN Reason Stop Dose Admin Apixaban 5 mg 09/21/19 10:00 09/22/19 10:00 Eliquis - PO 5 mg BID CARLA Administration Atorvastatin Calcium 10 mg 09/21/19 22:00 09/21/19 21:51 Lipitor - PO 10 mg HS CARLA Administration Diltiazem HCl 10 mg 09/21/19 11:37 Cardizem Injection - IVPUSH Q4H PRN TACHYCARDIA Docusate Sodium 100 mg 09/22/19 22:00 Colace - PO BID ACRLA Ferrous Sulfate 325 mg 09/22/19 22:00 Feosol - PO BID CARLA Gabapentin 600 mg 09/21/19 10:00 09/22/19 10:00 Neurontin - PO 600 mg DAILY CARLA Administration Sotalol HCl 80 mg 09/21/19 14:00 09/22/19 10:00 Betapace - PO 80 mg BID CARLA Administration ASSESSMENT/PLAN: 84 F PMH HTN, HLD, Atrial fibrillation (on apixaban), osteoarthritis, spinal stenosis, peripheral neuropathy, essential tremor who presented with Afib with RVR. 1)Afib with RVR -Echo on 05/11/2019 shows normal LV size, with moderate left ventricular hypertrophy, and normal left ventricular function -Telemetry shows Afib with RVR -Sotalol 80 mg PO BID with EKG QTc checks every 2 days. -Possible DC Cardioversion if inadequate rate control -Cardiology consulted 2) HTN -Home HCTZ held 3)HLD -Atorvastatin 10 mg PO HS 4) Hyperkalemia -Resolved 5) Microcytic anemia -secondary to iron deficiency -Ferrous Sulfate 325 mg PO Daily DVT Prophylaxis: On Home Eliquis F: Oral hydration E: Monitor BMP N: Sodium controlled diet DVT Px - on Eliquis. Visit type - Emergency Visit Emergency Visit: Yes ED Registration Date: 09/21/19 Care time: The patient presented to the Emergency Department on the above date and was hospitalized for further evaluation of their emergent condition. - New Patient This patient is new to me today: Yes Date on this admission: 09/22/19 - Critical Care Critical Care patient: No ATTENDING PHYSICIAN STATEMENT I saw and evaluated the patient. I reviewed the resident's note and discussed the case with the resident. I agree with the resident's findings and plan as documented. SUBJECTIVE: OBJECTIVE: ASSESSMENT AND PLAN:
--- NOTE | 2019-09-22 18:10 | PN ---
Progress Note, Physician History of Present Illness: Still with episodes of rapid afib despite sotalol, Cardizem CD added. Again confirmed compliance with Eliquis. Allergies: diazepam PCP: Kathi Melo/Jimy Ariza Director Digital Catalogue: Christiano Odell - Current Medication List Current Medications: Active Medications Apixaban (Eliquis -) 5 mg PO BID [facility] Last Admin: 09/22/19 10:00 Dose: 5 mg Atorvastatin Calcium (Lipitor -) 10 mg PO HS [facility] Last Admin: 09/21/19 21:51 Dose: 10 mg Diltiazem HCl (Cardizem Injection -) 10 mg IVPUSH Q4H PRN PRN Reason: TACHYCARDIA Diltiazem HCl (Cardizem Cd -) 120 mg PO DAILY [facility] Last Admin: 09/22/19 17:19 Dose: 120 mg Docusate Sodium (Colace -) 100 mg PO BID [facility] Ferrous Sulfate (Feosol -) 325 mg PO BID [facility] Gabapentin (Neurontin -) 600 mg PO DAILY [facility] Last Admin: 09/22/19 10:00 Dose: 600 mg Sotalol HCl (Betapace -) 80 mg PO BID [facility] Last Admin: 09/22/19 10:00 Dose: 80 mg - Objective Vital Signs: Vital Signs Temperature 98.4 F 09/22/19 14:00 Pulse Rate 124 H 09/22/19 14:00 Respiratory Rate 20 09/22/19 14:00 Blood Pressure 117/66 09/22/19 14:00 O2 Sat by Pulse Oximetry (%) 97 09/22/19 09:00 Constitutional: Yes: No Distress, Calm Neck: Yes: Supple Cardiovascular: Yes: Tachycardia, Pulse Irregular Respiratory: Yes: Regular, Diminished, On Nasal O2 Gastrointestinal: Yes: Normal Bowel Sounds, Soft, Abdomen, Obese Edema: No Labs: CBC, BMP 09/22/19 08:25 09/22/19 08:25 INR, PTT INR 1.49 (0.83-1.09) H 09/21/19 05:50 - ....Imaging EKG: Report Reviewed (Afib@97 QTc 480 msec Tele: Rapid afib) Problem List - Problems (1) Hyperlipidemia Code(s): E78.5 - HYPERLIPIDEMIA, UNSPECIFIED Qualifiers: Hyperlipidemia type: pure hypercholesterolemia Qualified Code(s): E78.00 - Pure hypercholesterolemia, unspecified; E78.0 - Pure hypercholesterolemia (2) Atrial fibrillation with RVR Code(s): I48.91 - UNSPECIFIED ATRIAL FIBRILLATION (3) Diastolic dysfunction Code(s): I51.89 - OTHER ILL-DEFINED HEART DISEASES Assessment/Plan 05/20/2019 Echo: Normal LV size with mod LVH and normal LV fxn, mild LAE, normal RA, normal RV size and fxn, tr MR, mild TR RVSP 34 mmHg, tr NE 1. Symptomatic rapid persistent atrial fibrillation 2. Hypertension 3. Hyperlipidemia 4. Spinal stenosis with lumbar radiculopathy requiring wheelchair and walker assistance 5. Chronic lymphedema P:1: Continue sotalol 80 bid and added Cardizem CD 120 qd with IV Cardizem as needed for rate-control, check daily QTC x 1 days, and replete K, continue Eliquis 5 bid, Zocor 20 qhs 2. May require DCCV if rate-control is inadequate, held NPO for possibility. Since compliance with Eliquis is assured, LISETTE-guidance will not be needed
[2019-09-22] MEDS: FERROUS SO4 325 MG TABLET (FP) PO SCH (21:43)
[2019-09-22] MEDS: ATORVASTATIN CA 10 MG TABLET (FP) PO SCH (21:44)
[2019-09-22] MEDS: DOCUSATE SODIUM 100 MG CAPSULE (FP) PO SCH (21:44)
[2019-09-23 07:00] LABS: BASO % 0.8 % (0-2.0); EOS % 1.9 % (0-4.5); HEMATOCRIT 34.8 % (32.4-45.2); HEMOGLOBIN 10.9 GM/dL (10.7-15.3); LYMPH % 19.1 % (8-40); MCH 24.1 pg (25.7-33.7); MCHC 31.4 g/dl (32.0-36.0); MEAN CELL VOLUME 76.9 fl (80-96); MEAN PLT VOLUME 9.3 fl (7.5-11.1); NEUT % 64.2 % (42.8-82.8); PLATELET COUNT 228 K/MM3 (134-434); RBC 4.52 M/mm3 (3.60-5.2); RDW 16.6 % (11.6-15.6)
[2019-09-23 07:20] LABS: BLOOD UREA NITROGEN 16.7 mg/dL (7-18); CALCIUM 8.7 mg/dL (8.5-10.1); CREATININE 0.8 mg/dL (0.55-1.3); POTASSIUM 4.3 mmol/L (3.5-5.1)
[2019-09-23] MEDS ORDERED: ETOMIDATE 20 MG/10 ML AMPUL IVPUSH ONE (09:42)
--- NOTE | 2019-09-23 10:19 | EKG ---
Test Reason : Blood Pressure : / mmHG Vent. Rate : 078 BPM Atrial Rate : 147 BPM P-R Int : 000 ms QRS Dur : 086 ms QT Int : 384 ms P-R-T Axes : 000 001 006 degrees QTc Int : 437 ms ATRIAL FIBRILLATION ABNORMAL ECG WHEN COMPARED WITH ECG OF 22-SEP-2019 09:01, NO SIGNIFICANT CHANGE WAS FOUND Confirmed by LUIS ALVAREZ MD ([id number]) on 09/23/2019 10:19:25 AM Referred By: OLIVER MAE Confirmed By:LUIS ALVAREZ MD
--- NOTE | 2019-09-23 10:23 | PN ---
Progress Note, Physician Chief Complaint: Events noted AF with variable block History of Present Illness: Patient was seen and examined. Awake and alert. Chart was reviewed Denies chest pain, SOB or palpitations Discussed with family regarding synchronized cardioversion. Patient and family agreeable to proceed this am - Current Medication List Current Medications: Active Medications Apixaban (Eliquis -) 5 mg PO BID [facility] Last Admin: 09/22/19 21:44 Dose: 5 mg Atorvastatin Calcium (Lipitor -) 10 mg PO HS [facility] Last Admin: 09/22/19 21:44 Dose: 10 mg Diltiazem HCl (Cardizem Injection -) 10 mg IVPUSH Q4H PRN PRN Reason: TACHYCARDIA Diltiazem HCl (Cardizem Cd -) 120 mg PO DAILY [facility] Last Admin: 09/22/19 17:19 Dose: 120 mg Docusate Sodium (Colace -) 100 mg PO BID [facility] Last Admin: 09/22/19 21:44 Dose: 100 mg Ferrous Sulfate (Feosol -) 325 mg PO BID [facility] Last Admin: 09/22/19 21:43 Dose: 325 mg Gabapentin (Neurontin -) 600 mg PO DAILY [facility] Last Admin: 09/22/19 10:00 Dose: 600 mg Sotalol HCl (Betapace -) 80 mg PO BID [facility] Last Admin: 09/22/19 21:44 Dose: 80 mg - Objective Vital Signs: Vital Signs Temperature 98.0 F 09/23/19 06:00 Pulse Rate 83 09/23/19 06:00 Respiratory Rate 20 09/23/19 06:00 Blood Pressure 134/75 09/23/19 06:00 O2 Sat by Pulse Oximetry (%) 95 09/22/19 20:23 Eyes: Yes: PERRL HENT: Yes: Atraumatic Neck: Yes: Supple Cardiovascular: Yes: Pulse Irregular, S1, S2 Respiratory: Yes: CTA Bilaterally Gastrointestinal: Yes: Normal Bowel Sounds, Soft. No: Tenderness Edema: No Additional Findings/Remarks: - Review of Systems Constitutional: denies: Chills, Fever Cardiovascular: reports: Palpitations, denies: Shortness of Breath. denies: Chest Pain Respiratory: denies SOB. denies: Cough, Hemoptysis, PND, Snoring, SOB on Exertion, Wheezing Gastrointestinal: denies Abdominal Pain, Bloating, Diarrhea, Nausea, Vomiting. denies: Constipation, Melena, Rectal Bleeding Genitourinary: denies: Discharge, Hematuria Neurological: denies: Dizziness, Headache, Seizure, Syncope Labs: CBC, BMP 09/23/19 06:28 09/23/19 06:28 Problem List - Problems (1) Diastolic dysfunction Code(s): I51.89 - OTHER ILL-DEFINED HEART DISEASES (2) Hyperlipidemia Code(s): E78.5 - HYPERLIPIDEMIA, UNSPECIFIED Qualifiers: Hyperlipidemia type: pure hypercholesterolemia Qualified Code(s): E78.00 - Pure hypercholesterolemia, unspecified; E78.0 - Pure hypercholesterolemia (3) Atrial fibrillation with RVR Code(s): I48.91 - UNSPECIFIED ATRIAL FIBRILLATION (4) Degenerative joint disease of right knee Code(s): M17.9 - OSTEOARTHRITIS OF KNEE, UNSPECIFIED Qualifiers: Osteoarthritis type: unspecified Qualified Code(s): M17.11 - Unilateral primary osteoarthritis, right knee Assessment/Plan 1. Symptomatic persistent atrial fibrillation 2. Hypertension 3. Hyperlipidemia 4. Spinal stenosis with lumbar radiculopath 5. Chronic lymphedema PLAN: 1: Continue Sotalol 80 mg BID along with Cardizem CD 120 mg QD. Continue Eliquis 5 mg BID and Zocor 20 mg QHS 2. Proceed with DCCV Successful synchronized cardioversion to sinus rhythm with 120 J. Immediately post cardioversion, monitor exhibited sinus bradycardia in the 40-50s. Decrease Sotalol to 40 mg BID as tolerated and discontinue Cardizem CD. Monitor another day for QTc and possible discharge home tomorrow if remains stable. Discussed with house staff (resident) Abrahan Goldberg MD
--- NOTE | 2019-09-23 10:40 | EKG ---
Test Reason : Blood Pressure : / mmHG Vent. Rate : 097 BPM Atrial Rate : 357 BPM P-R Int : 000 ms QRS Dur : 090 ms QT Int : 378 ms P-R-T Axes : 000 001 002 degrees QTc Int : 480 ms ATRIAL FIBRILLATION ABNORMAL ECG WHEN COMPARED WITH ECG OF 20-SEP-2019 16:50, VENT. RATE HAS DECREASED Confirmed by LUIS ALVAREZ MD ([id number]) on 09/23/2019 10:40:19 AM Referred By: Indra CURIEL Confirmed By:LUIS ALVAREZ MD
--- NOTE | 2019-09-23 10:57 | EKG ---
Test Reason : Blood Pressure : / mmHG Vent. Rate : 049 BPM Atrial Rate : 049 BPM P-R Int : 148 ms QRS Dur : 092 ms QT Int : 460 ms P-R-T Axes : 031 -08 003 degrees QTc Int : 415 ms SINUS BRADYCARDIA WITH SINUS ARRHYTHMIA OTHERWISE NORMAL ECG WHEN COMPARED WITH ECG OF 23-SEP-2019 08:48, SINUS RHYTHM HAS REPLACED ATRIAL FIBRILLATION VENT. RATE HAS DECREASED BY 29 BPM Confirmed by KIM NELSON, LUIS ([id number]) on 09/23/2019 10:57:25 AM Referred By: LUIS ALVAREZ Confirmed By:LUIS ALVAREZ MD
[2019-09-23] MEDS: GABAPENTIN 300 MG CAPSULE (FP) PO SCH (13:45)
[2019-09-23] MEDS: DOCUSATE SODIUM 100 MG CAPSULE (FP) PO SCH ×3 (13:45→22:22)
[2019-09-23] MEDS: SOTALOL HCL 80 MG TABLET (FP) PO SCH ×2 (13:45→22:21)
[2019-09-23] MEDS: APIXABAN 5 MG TABLET PO SCH ×2 (13:45→22:22)
[2019-09-23] MEDS: FERROUS SO4 325 MG TABLET (FP) PO SCH ×2 (13:45→22:22)
--- NOTE | 2019-09-23 15:21 | PN ---
Physical Exam: SUBJECTIVE: Patient seen and examined in the morning. No acute events overnight. No complaints of chest pain, shortness of breath, abdominal pain, nausea, vomiting, diarrhea. OBJECTIVE: Vital Signs Period Temp Pulse Resp BP Sys/Mckinney Pulse Ox Last 24 Hr 98 F-98.9 F 47-113 17-20 103-134/51-80 95-100 GENERAL: The patient is awake, alert, and fully oriented, in no acute distress. HEAD: Normal with no signs of trauma. LUNGS: Breath sounds equal, clear to auscultation bilaterally, no wheezes. HEART: Irregularly irregular, no murmurs rubs or gallops ABDOMEN: Soft, nontender, nondistended, normoactive bowel sounds. EXTREMITIES: 2+ pulses, +2 edema, chronic venous stasis Laboratory Results - last 24 hr 09/23/19 09/23/19 06:28 06:28 WBC 7.0 RBC 4.52 Hgb 10.9 Hct 34.8 MCV 76.9 L MCH 24.1 L MCHC 31.4 L RDW 16.6 H Plt Count 228 MPV 9.3 Absolute Neuts (auto) 4.5 Neutrophils % 64.2 Lymphocytes % 19.1 Monocytes % 14.0 H Eosinophils % 1.9 Basophils % 0.8 Nucleated RBC % 0 Sodium 142 Potassium 4.3 Chloride 109 H Carbon Dioxide 26 Anion Gap 6 L BUN 16.7 Creatinine 0.8 Est GFR (CKD-EPI)AfAm 78.47 Est GFR (CKD-EPI)NonAf 67.70 Random Glucose 74 Calcium 8.7 Active Medications Generic Name Dose Route Start Last Admin Trade Name Freq PRN Reason Stop Dose Admin Apixaban 5 mg 09/21/19 10:00 09/23/19 13:45 Eliquis - PO 5 mg BID CARLA Administration Atorvastatin Calcium 10 mg 09/21/19 22:00 09/22/19 21:44 Lipitor - PO 10 mg HS CARLA Administration Diltiazem HCl 10 mg 09/21/19 11:37 Cardizem Injection - IVPUSH Q4H PRN TACHYCARDIA Docusate Sodium 100 mg 09/22/19 22:00 09/23/19 14:21 Colace - PO Not Given BID CARLA Ferrous Sulfate 325 mg 09/22/19 22:00 09/23/19 13:45 Feosol - PO 325 mg BID CARLA Administration Gabapentin 600 mg 09/21/19 10:00 09/23/19 13:45 Neurontin - PO 600 mg DAILY CARLA Administration Sotalol HCl 40 mg 09/23/19 12:45 09/23/19 13:45 Betapace - PO 40 mg BID CARLA Administration ASSESSMENT/PLAN: 84 F PMH HTN, HLD, Atrial fibrillation (on apixaban), osteoarthritis, spinal stenosis, peripheral neuropathy, essential tremor who presented with Afib with RVR. 1)Afib with RVR -Echo on 05/11/2019 shows normal LV size, with moderate left ventricular hypertrophy, and normal left ventricular function -Telemetry shows normal sinus rhythm -Sotalol 40 mg PO BID with EKG QTc checks every 2 days. -DC Cardioverted today. Patient is bradycardic -Cardiology consulted 2) HTN -Home HCTZ held 3)HLD -Atorvastatin 10 mg PO HS 4) Hyperkalemia -Resolved 5) Microcytic anemia -secondary to iron deficiency -Ferrous Sulfate 325 mg PO Daily DVT Prophylaxis: On Home Eliquis F: Oral hydration E: Monitor BMP N: Sodium controlled diet DVT Px - on Eliquis. Visit type - Emergency Visit Emergency Visit: Yes ED Registration Date: 09/21/19 Care time: The patient presented to the Emergency Department on the above date and was hospitalized for further evaluation of their emergent condition. - New Patient This patient is new to me today: No - Critical Care Critical Care patient: No ATTENDING PHYSICIAN STATEMENT I saw and evaluated the patient. I reviewed the resident's note and discussed the case with the resident. I agree with the resident's findings and plan as documented. SUBJECTIVE: OBJECTIVE: ASSESSMENT AND PLAN:
--- NOTE | 2019-09-23 18:35 | PN ---
Teaching Attending Note Name of Resident: Trisha Wilkinson ATTENDING PHYSICIAN STATEMENT I saw and evaluated the patient. I reviewed the resident's note and discussed the case with the resident. I agree with the resident's findings and plan as documented. SUBJECTIVE: Feeling better s/p DC Cardioversion. No chest pain/palpitations/ lightheadedness. OBJECTIVE: Afebrile, Hemodynamically Stable. AAO x 3 Last Vital Signs Temp Pulse Resp BP Pulse Ox 98.4 F 59 L 20 119/59 L 98 09/23/19 15:00 09/23/19 15:00 09/23/19 15:00 09/23/19 15:00 09/23/19 10:58 Heart - S1, S2, regular Lungs - clear to auscultation Abdomen - soft, non-tender. Bowel Sounds normal. Extremities - Chronic venous stasis with skin changes. Laboratory Results - last 24 hr 09/23/19 09/23/19 06:28 06:28 WBC 7.0 RBC 4.52 Hgb 10.9 Hct 34.8 MCV 76.9 L MCH 24.1 L MCHC 31.4 L RDW 16.6 H Plt Count 228 MPV 9.3 Absolute Neuts (auto) 4.5 Neutrophils % 64.2 Lymphocytes % 19.1 Monocytes % 14.0 H Eosinophils % 1.9 Basophils % 0.8 Nucleated RBC % 0 Sodium 142 Potassium 4.3 Chloride 109 H Carbon Dioxide 26 Anion Gap 6 L BUN 16.7 Creatinine 0.8 Est GFR (CKD-EPI)AfAm 78.47 Est GFR (CKD-EPI)NonAf 67.70 Random Glucose 74 Calcium 8.7 Current Medications Generic Name Dose Route Start Last Admin Trade Name Freq PRN Reason Stop Dose Admin Apixaban 5 mg 09/21/19 10:00 09/23/19 13:45 Eliquis - PO 5 mg BID CARLA Administration Atorvastatin Calcium 10 mg 09/21/19 22:00 09/22/19 21:44 Lipitor - PO 10 mg HS CARLA Administration Diltiazem HCl 10 mg 09/21/19 11:37 Cardizem Injection - IVPUSH Q4H PRN TACHYCARDIA Docusate Sodium 100 mg 09/22/19 22:00 09/23/19 14:21 Colace - PO Not Given BID CARLA Ferrous Sulfate 325 mg 09/22/19 22:00 09/23/19 13:45 Feosol - PO 325 mg BID CARLA Administration Gabapentin 600 mg 09/21/19 10:00 09/23/19 13:45 Neurontin - PO 600 mg DAILY CARLA Administration Sotalol HCl 40 mg 09/23/19 12:45 09/23/19 13:45 Betapace - PO 40 mg BID CARLA Administration Home Medications Medication Instructions Recorded Hydrochlorothiazide 25 mg PO DAILY 08/21/12 Metoprolol Succinate [Toprol XL -] 25 mg PO DAILY 08/21/12 Simvastatin [Zocor -] 20 mg PO HS 08/21/12 Diclofenac Sodium 100 mg PO BID 01/24/18 Gabapentin [Neurontin -] 600 mg PO DAILY 01/24/18 Apixaban [Eliquis] 5 mg PO BID 09/21/19 ASSESSMENT/PLAN: 84 year old female with history of HTN, HLD, atrial fibrillation on anticoagulation, osteoarthritis, Spinal stenosis with lumbar radiculopathy requiring wheelchair and walker assistance, peripheral neuropathy, essential tremor, presented with chills and generalized weakness, found to have Atrial Fibrillation with RVR (HR in 140s in ED). 1. Atrial fibrillation with RVR - resolved s/p DC cardioversion. Claims compliance with home medications including Metoprolol and Eliquis. Last Echo 05/20/2019 - Normal LV size with mod LVH and normal LV fxn. Evaluated by Cardiology - recommend changing Metoprolol to Sotalol, with regular QTc checks. For telemetry monitoring again tonight as per Cardio. Awaiting further Cardio discharge recommendations. 2. HTN - HCTZ held. 3. HLD - Continue Simvastatin 4. Hyperkalemia - repleted. 5. Microcytic Anemia - sec to Iron deficiency. Iron Sat 7%. Will start FeSO4 supplementation but will need referral to GI for work-up as out-patient. DVT Px - on Eliquis.
[2019-09-23] MEDS: ATORVASTATIN CA 10 MG TABLET (FP) PO SCH (22:22)
[2019-09-24 07:21] LABS: BASO % 0.7 % (0-2.0); EOS % 0.6 % (0-4.5); HEMATOCRIT 31.7 % (32.4-45.2); HEMOGLOBIN 10.1 GM/dL (10.7-15.3); LYMPH % 13.7 % (8-40); MCH 24.2 pg (25.7-33.7); MCHC 31.9 g/dl (32.0-36.0); MEAN CELL VOLUME 76.1 fl (80-96); MEAN PLT VOLUME 9.4 fl (7.5-11.1); MONO % 11.3 % (3.8-10.2); NEUT % 73.7 % (42.8-82.8); PLATELET COUNT 250 K/MM3 (134-434); RBC 4.16 M/mm3 (3.60-5.2); RDW 16.2 % (11.6-15.6)
[2019-09-24 07:54] LABS: BLOOD UREA NITROGEN 20.4 mg/dL (7-18); CREATININE 0.6 mg/dL (0.55-1.3)
[2019-09-24 07:55] LABS: CALCIUM 8.5 mg/dL (8.5-10.1)
--- NOTE | 2019-09-24 08:59 | PN ---
Progress Note (short form) - Note Progress Note: Chief Complaint: Events noted, notes reviewed, sinus rhythm is maintained post cardioversion, denies any chest discomfort or dyspnea, EKG from this a.m. noted History of Present Illness: Seen and examined on telemetry. Events noted, notes reviewed, sinus rhythm is maintained post cardioversion, denies any chest discomfort or dyspnea, EKG from this a.m. noted Echocardiography performed earlier today revealed normal left ventricular size and systolic function with estimated LVEF between 55-60%, normal right ventricular size and systolic function, moderate bi-atrial dilatation, mild to moderate mitral valve regurgitation, mild to moderate tricuspid valve regurgitation with calculated RVSP between 50-60 mmHg consistent with moderate degree of pulmonary hypertension Medications: Current Medications Apixaban (Eliquis -) 5 mg PO BID [facility] Last Admin: 09/23/19 22:22 Dose: 5 mg Atorvastatin Calcium (Lipitor -) 10 mg PO HS [facility] Last Admin: 09/23/19 22:22 Dose: 10 mg Diltiazem HCl (Cardizem Injection -) 10 mg IVPUSH Q4H PRN PRN Reason: TACHYCARDIA Docusate Sodium (Colace -) 100 mg PO BID [facility] Last Admin: 09/23/19 22:22 Dose: Not Given Ferrous Sulfate (Feosol -) 325 mg PO BID [facility] Last Admin: 09/23/19 22:22 Dose: 325 mg Gabapentin (Neurontin -) 600 mg PO DAILY [facility] Last Admin: 09/23/19 13:45 Dose: 600 mg Sotalol HCl (Betapace -) 40 mg PO BID [facility] Last Admin: 09/23/19 22:21 Dose: 40 mg Review of Systems Constitutional: denies: Chills or Fever Cardiovascular: as noted above Respiratory: denies: Cough or Sputum Production Gastrointestinal: denies: Nausea, Vomiting, Diarrhea, Constipation or Abdominal Pain Genitourinary: denies: Dysuria Musculoskeletal: denies: Joint Pain Neurological: denies: Dizziness or Headache Vital Signs: Last Vital Signs Temp Pulse Resp BP Pulse Ox 98 F 90 20 131/52 L 98 09/24/19 05:32 09/24/19 05:32 09/24/19 05:32 09/24/19 05:32 09/23/19 21:00 Intake & Output 09/21/19 09/22/19 09/23/19 09/24/19 23:59 23:59 23:59 23:59 Intake Total 970 1210 600 100 Balance 970 1210 600 100 Weight 228 lb Constitutional: No Distress, Calm, Thin Respiratory: Clear to A&P Bilaterally Cardiovascular: S1 S2 Regular Rate and Rhythm Gastrointestinal: Soft Benign Normal Bowel Sounds Ext: Edema Labs: CBC, BMP 09/24/19 06:25 09/24/19 06:25 Hepatic Panel Total Bilirubin 1.1 mg/dL (0.2-1) H 09/21/19 05:50 AST 18 U/L (15-37) 09/21/19 05:50 ALT 17 U/L (13-61) 09/21/19 05:50 Alkaline Phosphatase 64 U/L (45-117) 09/21/19 05:50 Albumin 2.9 g/dl (3.4-5.0) L 09/21/19 05:50 INR, PTT INR 1.49 (0.83-1.09) H 09/21/19 05:50 Assessment/Plan ASSESSMENT: 1. Paroxysmal atrial fibrillation post synchronize cardioversion, [id number] score of 4 on anticoagulation therapy with DOAC's/Eliquis 2. Diastolic left ventricle dysfunction with clinical class 0 [employer] classification left ventricular failure, moderate degree of pulmonary hypertension as noted on echocardiography 3. Mitral valve regurgitation 4. Tricuspid valve regurgitation 5. Hypertension 6. Hypercholesterolemia 7. Degenerative lumbosacral disc disease, spinal stenosis with lumbar radiculopathy 8. Chronic lymphedema PLAN: 1. Continue Sotalol at 40 mg twice daily 2. Recommend the addition of angiotensin receptor arnaldo therapy in view of the above noted diastolic left ventricular dysfunction with pulmonary hypertension, Diovan therapy at 40 mg once daily 3. Continue Eliquis at 5 mg twice daily 4. Continue Zocor therapy 5. Can be discharged home from the cardiovascular point of view and follow-up in the office in 1-2 week (discussed in detail with the patient), Socorro Cooley M.D.
[2019-09-24] MEDS: FERROUS SO4 325 MG TABLET (FP) PO SCH (10:19)
[2019-09-24] MEDS: DOCUSATE SODIUM 100 MG CAPSULE (FP) PO SCH (10:20)
[2019-09-24] MEDS: GABAPENTIN 300 MG CAPSULE (FP) PO SCH (10:20)
[2019-09-24] MEDS: APIXABAN 5 MG TABLET PO SCH (10:20)
[2019-09-24] MEDS: SOTALOL HCL 80 MG TABLET (FP) PO SCH (10:20)
[2019-09-24 10:38] VITALS: TEMP 98.2
--- NOTE | 2019-09-24 11:13 | ECHO ---
Name: ZOHRA CARREON Exam:Adult Echocardiogram Study Date: 09/24/2019 09:44 AM Age: 84 yrs Reason For Study: Rapid Afib Height: 63 in Weight: 228 lb BSA: 2.0 m2 MMode/2D Measurements & Calculations IVSd: 1.0 cm Ao root diam: 2.2 cm LVIDd: 3.5 cm LA dimension: 4.6 cm LVIDs: 2.6 cm ACS: 1.6 cm LVPWd: 1.4 cm EDV(Teich): 49.8 ml LVOT diam: 1.8 cm ESV(Teich): 25.1 ml RV S Lucas: 13.7 cm/sec Doppler Measurements & Calculations MV E max lucas: 92.3 cm/sec Ao V2 max: 140.1 cm/sec MV A max lucas: 32.6 cm/sec Ao max P.8 mmHg MV E/A: 2.8 Ao V2 mean: 106.1 cm/sec MV dec time: 0.12 sec Ao mean P.9 mmHg Ao V2 VTI: 37.4 cm FLORA(I,D): 1.6 cm2 FLORA(V,D): 2.1 cm2 LV V1 max P.6 mmHg MR max lucas: 485.4 cm/sec LV V1 mean P.9 mmHg MR max P.3 mmHg LV V1 max: 107.1 cm/sec LV V1 mean: 61.0 cm/sec LV V1 VTI: 22.1 cm SV(LVOT): 59.4 ml TR max lucas: 289.8 cm/sec TR max P.1 mmHg PI end-d lucas: 137.2 cm/sec Med Peak E' Lucas: 6.0 cm/sec Med E/e': 15.3 Lat Peak E' Lucas: 9.4 cm/sec Lat E/e': 9.9 Procedure A two-dimensional transthoracic echocardiogram with color flow and Doppler was performed. The patient was in atrial fibrillation with controlled ventricular rate during the exam. Left Ventricle The left ventricle is normal in size. Left ventricular systolic function is normal. Ejection Fraction = 55- 60%. Right Ventricle The right ventricle is normal size. The right ventricular systolic function is normal. Atria The left atrium is moderately dilated. The right atrium is moderately dilated. Mitral Valve The mitral valve is normal. There is mild to moderate mitral regurgitation. Tricuspid Valve The tricuspid valve is normal. There is mild to moderate tricuspid regurgitation. Right ventricular s ystolic pressure is elevated at 50-60mmHg. There is moderate pulmonary hypertension. Aortic Valve Fibrocalcific aortic valve with no stenosis. No aortic regurgitation is present. Pulmonic Valve The pulmonic valve is not well seen, but is grossly normal. Trace pulmonic valvular regurgitation. Great Vessels The aortic root is normal size. Pericardium/Pleura There is no pericardial effusion. Interpretation Summary The left ventricle is normal in size. Left ventricular systolic function is normal. The right ventricle is normal size. The right ventricular systolic function is normal. The left atrium is moderately dilated. The right atrium is moderately dilated. There is mild to moderate mitral regurgitation. There is mild to moderate tricuspid regurgitation. Right ventricular systolic pressure is elevated at 50-60mmHg. There is moderate pulmonary hypertension. Fibrocalcific aortic valve with no stenosis. Trace pulmonic valvular regurgitation. There is no pericardial effusion. MD Feroz Roberson 09/24/2019 11:12 AM
--- NOTE | 2019-09-24 13:44 | EKG ---
Test Reason : Blood Pressure : / mmHG Vent. Rate : 068 BPM Atrial Rate : 068 BPM P-R Int : 146 ms QRS Dur : 092 ms QT Int : 442 ms P-R-T Axes : 032 -07 007 degrees QTc Int : 469 ms NORMAL SINUS RHYTHM NORMAL ECG WHEN COMPARED WITH ECG OF 23-SEP-2019 10:28, QT HAS LENGTHENED Confirmed by MD Falcon Edward ([id number]) on 09/24/2019 1:44:03 PM Referred By: [facility]ONI [facility] Confirmed By:Teddy Falcon MD
[2019-09-24] MEDS ORDERED: VALSARTAN 40 MG TABLET (FP) PO SCH (14:45)
[2019-09-24 15:53] VITALS: BP 133/59; PULSE 69
--- NOTE | 2019-09-24 17:05 | PN ---
Teaching Attending Note Name of Resident: Trisha Wilkinson ATTENDING PHYSICIAN STATEMENT I saw and evaluated the patient. I reviewed the resident's note and discussed the case with the resident. I agree with the resident's findings and plan as documented. SUBJECTIVE: Patient has no complaints. She denies chest pain, palpitations. She says she feels SOB with exertion. OBJECTIVE: Vital Signs Period Temp Pulse Resp BP Sys/Mckinney Pulse Ox Last 24 Hr 97.6 F-99.1 F 62-90 18-20 116-135/50-87 98 HEART: S1S2, RRR LUNGS: Clear ABDOMEN: Soft, non-tender, non-distended, normal BS EXTREMITIES: 1+ edema Laboratory Results - last 24 hr 09/24/19 09/24/19 06:25 06:25 WBC 9.0 RBC 4.16 Hgb 10.1 L Hct 31.7 L MCV 76.1 L MCH 24.2 L MCHC 31.9 L RDW 16.2 H Plt Count 250 MPV 9.4 Absolute Neuts (auto) 6.6 Neutrophils % 73.7 Lymphocytes % 13.7 D Monocytes % 11.3 H Eosinophils % 0.6 Basophils % 0.7 Nucleated RBC % 0 Sodium 140 Potassium 4.0 Chloride 109 H Carbon Dioxide 25 Anion Gap 6 L BUN 20.4 H Creatinine 0.6 Est GFR (CKD-EPI)AfAm 97.01 Est GFR (CKD-EPI)NonAf 83.70 Random Glucose 83 Calcium 8.5 Current Medications Generic Name Dose Route Start Last Admin Trade Name Freq PRN Reason Stop Dose Admin Apixaban 5 mg 09/21/19 10:00 09/24/19 10:20 Eliquis - PO 5 mg BID CARLA Administration Atorvastatin Calcium 10 mg 09/21/19 22:00 09/23/19 22:22 Lipitor - PO 10 mg HS CARLA Administration Diltiazem HCl 10 mg 09/21/19 11:37 Cardizem Injection - IVPUSH Q4H PRN TACHYCARDIA Docusate Sodium 100 mg 09/22/19 22:00 09/24/19 10:20 Colace - PO 100 mg BID CARLA Administration Ferrous Sulfate 325 mg 09/22/19 22:00 09/24/19 10:19 Feosol - PO 325 mg BID CARLA Administration Gabapentin 600 mg 09/21/19 10:00 09/24/19 10:20 Neurontin - PO 600 mg DAILY CARLA Administration Sotalol HCl 40 mg 09/23/19 12:45 09/24/19 10:20 Betapace - PO 40 mg BID CARLA Administration Valsartan 40 mg 09/24/19 14:45 09/24/19 16:29 Diovan - PO 40 mg DAILY CARLA Administration ASSESSMENT AND PLAN: 84 year old female with history of HTN, HLD, atrial fibrillation on anticoagulation, osteoarthritis, Spinal stenosis with lumbar radiculopathy requiring wheelchair and walker assistance, peripheral neuropathy, essential tremor, presented with chills and generalized weakness, found to have Atrial Fibrillation with RVR (HR in 140s in ED). 1. Atrial fibrillation with RVR - s/p DC cardioversion - Remains in SR - Echo shows normal LV, normal LV systolic function, normal RV systolic function, moderately dilated LA/RA, mild to moderate MR, mild to moderate TR, moderate pulm HTN, trace VA - Continue Sotalol, Eliquis 2. HTN - Continue Diovan, Sotalol 3. Hyperlipidemia - Continue Lipitor 4. Diastolic dysfunction - No evidence of acute heart failure - Diovan started 5. Pulm HTN 6. Hypokalemia - Improved 7. Anemia secondary to iron deficiency - Ferrous sulfate started - Outpatient GI evaluation
--- NOTE | 2019-09-24 17:19 | DS ---
Physical Exam: SUBJECTIVE: Patient seen and examined in the morning. No acute events overnight. Patient had no events on telemetry monitoring. No complaints of chest pain, shortness of breath, fever, cough, abdominal pain, nausea, vomiting , diarrhea. OBJECTIVE: Vital Signs Period Temp Pulse Resp BP Sys/Mckinney Pulse Ox Last 24 Hr 97.6 F-99.1 F 62-90 18-20 116-135/50-87 98 PHYSICAL EXAM GENERAL: The patient is awake, alert, and fully oriented, in no acute distress. HEAD: Normal with no signs of trauma. LUNGS: Breath sounds equal, clear to auscultation bilaterally, no wheezes. HEART: Irregularly irregular, no murmurs rubs or gallops ABDOMEN: Soft, nontender, nondistended, normoactive bowel sounds. EXTREMITIES: 2+ pulses, +2 edema, chronic venous stasis LABS Laboratory Results - last 24 hr 09/24/19 09/24/19 06:25 06:25 WBC 9.0 RBC 4.16 Hgb 10.1 L Hct 31.7 L MCV 76.1 L MCH 24.2 L MCHC 31.9 L RDW 16.2 H Plt Count 250 MPV 9.4 Absolute Neuts (auto) 6.6 Neutrophils % 73.7 Lymphocytes % 13.7 D Monocytes % 11.3 H Eosinophils % 0.6 Basophils % 0.7 Nucleated RBC % 0 Sodium 140 Potassium 4.0 Chloride 109 H Carbon Dioxide 25 Anion Gap 6 L BUN 20.4 H Creatinine 0.6 Est GFR (CKD-EPI)AfAm 97.01 Est GFR (CKD-EPI)NonAf 83.70 Random Glucose 83 Calcium 8.5 HOSPITAL COURSE: Date of Admission:09/21/19 Date of Discharge: 09/24/19 84 F PMH HTN, HLD, Atrial fibrillation (on apixaban), osteoarthritis, spinal stenosis, peripheral neuropathy, essential tremor who presented with Afib with RVR. Patient was started sotalol 80 mg and cardizem 120 mg PO to achieve rate control. However rate control was not achieved with PO medications, and underwent DC cardioversion 09/23/19. Patient was initially bradycardic, but HR normalized on 09/24/19. EKG was repeated, and reviewed with specialty sales consultant who felt that QTc was not prolonged due to U waves present. Was recommended to discharge with sotalol 40 mg PO BID and Valsartan 40 mg PO Daily. Patient will follow up with cardiology within 1 week. Patient's home hydrocholorthiazide was held. Patient was noted to have anemia and will follow up with GI as outpatient. Patient continuing home dose of eliquis. Imaging done this admission: Echo: The left ventricle is normal in size. Left ventricular systolic function is normal. The right ventricle is normal size. The right ventricular systolic function is normal. The left atrium is moderately dilated. The right atrium is moderately dilated. There is mild to moderate mitral regurgitation. There is mild to moderate tricuspid regurgitation. Right ventricular systolic pressure is elevated at 50-60mmHg. There is moderate pulmonary hypertension. Fibrocalcific aortic valve with no stenosis. Trace pulmonic valvular regurgitation. There is no pericardial effusion. Duplex U/S of Right arm: No sonographic evidence of DVT is identified involving the right arm. A nonspecific subcutaneous soft tissue nodule is noted at the level of the right elbow laterally. Chest X-Ray: A single view of the chest reveals a weak inspiration with unfolded aorta, prominent kalpesh, normal heart but no sign of infiltrate or failure. The angles are sharp. The bones and soft tissues are intact. Correlation recommended. Minutes to complete discharge: 30 Discharge Summary Problems reviewed: Yes Reason For Visit: ATRIAL FEBRILLATION W/RAPID VENTRICULAR RESP Current Active Problems Diastolic dysfunction (Chronic) Hyperlipidemia (Chronic) Condition: Improved - Instructions Diet, Activity, Other Instructions: You were admitted to the hospital because you were found to have atrial fibrillation. While in the hospital we changed your medications to try to control your heart rate and bring your atrial fibrillation under control. We then used DC cardioversion to bring your atrial fibrillation under control. After that procedure your heart rate has been normal and you have been stable. We also did a scan of your heart to see if that is what caused your atrial fibrillation, the scan was normal. We saw that you were anemic(low blood count) while in the hospital. Please follow up with Dr. Beckford (gastroenterology doctor) to further evaluate this. We have included a referral. While you were here we noticed that you had redness and some swelling in your right arm. Treat it with cold compresses and and keeping the arm raised. We changed your home medication of metoprolol. You will not be taking it anymore. We stopped your home medication of hydrochlorothiazide. You will not be taking it anymore. Instead, please take: Sotalol 40 mg, by mouth, twice a day. Valsartan 40 mg, by mouth, once a day. Please continue taking all other medications as directed. Please follow up with Dr. Odell within 1 week to continue management of your atrial fibrillation. Please follow up with Dr. Beckford (Gastroenterology) within 1 week to further evaluate your anemia. Please follow up with Dr. Melo within 1 week to update them on this admission and your new medications, and to continue your health maintenance with them. Return to the emergency department if you have chest pains, palpitations, nausea , vomiting, diarrhea, or worsening of your symptoms. Referrals: Darwin Beckford DO [Staff Physician] - 1 Week Kathi Melo [Primary Care Provider] - 1 Week Christiano Odell MD [Staff Physician] - 1 Week Disposition: HOME - Home Medications Comprehensive Discharge Medication List: Ambulatory Orders Simvastatin [Zocor -] 20 mg PO HS 08/21/12 Diclofenac Sodium 100 mg PO BID 01/24/18 Gabapentin [Neurontin -] 600 mg PO DAILY 01/24/18 Apixaban [Eliquis] 5 mg PO BID 09/21/19 Ferrous Sulfate [Feosol] 325 mg PO BID #60 ud 09/24/19 Sotalol HCl [Betapace -] 40 mg PO BID #60 tablet 09/24/19 Valsartan [Diovan] 40 mg PO DAILY #30 tablet 09/24/19 This patient is new to me today: No Emergency Visit: Yes ED Registration Date: 09/21/19 Care time: The patient presented to the Emergency Department on the above date and was hospitalized for further evaluation of their emergent condition. Critical Care patient: No - Discharge Referral Referred to [facility] No ATTENDING PHYSICIAN STATEMENT I saw and evaluated the patient. I reviewed the resident's note and discussed the case with the resident. I agree with the resident's findings and plan as documented. SUBJECTIVE: OBJECTIVE: ASSESSMENT AND PLAN:
== END 2019-09-24 20:04 | disposition home health service (06) | DRG 309 ==
LOC: JER 16:11 → JERBED 09-21 00:57 → UNDOADMOB 09-21 00:57 → INTOOBSV 09-21 00:57 → JERBED 09-21 01:46 → OBSVTOIN 09-21 03:47 → J4W 09-21 04:16
PROVIDERS: ADMIT Internal Medicine; ATTEND Internal Medicine
PROC: 5A2204Z Restoration of Cardiac Rhythm, Single (ICD-10-PCS; principal; 2019-09-23 09:30)
DX: I48.21 Permanent atrial fibrillation (principal); G45.9 Transient cerebral ischemic attack, unspecified; Z68.41 Body mass index [BMI] 40.0-44.9, adult; E66.01 Morbid (severe) obesity due to excess calories; I10 Essential (primary) hypertension; M48.00 Spinal stenosis, site unspecified; G62.9 Polyneuropathy, unspecified; E78.00 Pure hypercholesterolemia, unspecified; I89.0 Lymphedema, not elsewhere classified; M48.061 Spinal stenosis, lumbar region without neurogenic claudication; M54.16 Radiculopathy, lumbar region; I51.89 Other ill-defined heart diseases; G25.0 Essential tremor; Z99.3 Dependence on wheelchair; E87.5 Hyperkalemia; D64.9 Anemia, unspecified; D50.9 Iron deficiency anemia, unspecified; I27.20 Pulmonary hypertension, unspecified; I08.1 Rheumatic disorders of both mitral and tricuspid valves; E87.6 Hypokalemia
CPT/HCPCS: 36415; 71045-TC-FY; 80048; 80053; 81003; 82728; 83540; 83550; 83735; 83880; 84100; 84443; 85025; 85610; 85730; 87086; 93005; 93010; 93306-TC; 93971; 97116-GP; 97161-GP; 99285-25; G0378

== ENCOUNTER 2019-10-14 12:34 | Emergency (ER) | payer OTHER ==
[2019-10-14 13:07] VITALS: BMI 30.9
[2019-10-14] MEDS ORDERED: SODIUM CHLORIDE 0.9% 500 ML INFUS.BAG IV ONE ×2 (13:26→14:46)
[2019-10-14 13:52] LABS: BASO % 2.7 % (0-2.0); HEMATOCRIT 39.5 % (32.4-45.2); HEMOGLOBIN 12.1 GM/dL (10.7-15.3); LYMPH % 15.6 % (8-40); MCH 23.8 pg (25.7-33.7); MCHC 30.6 g/dl (32.0-36.0); MEAN CELL VOLUME 77.8 fl (80-96); MEAN PLT VOLUME 9.6 fl (7.5-11.1); MONO % 10.3 % (3.8-10.2); NEUT % 69.4 % (42.8-82.8); PLATELET COUNT 270 K/MM3 (134-434); RBC 5.07 M/mm3 (3.60-5.2); WHITE BLOOD COUNT 4.7 K/mm3 (4.0-10.0)
[2019-10-14 14:02] LABS: INR 1.53 (0.83-1.09); PROTHROMBIN TIME (PATIENT) 18.1 SEC (9.7-13.0)
[2019-10-14 14:04] LABS: ACTIVATED PTT 40.2 SECONDS (25.2-36.5)
[2019-10-14 14:22] LABS: ALBUMIN 3.2 g/dl (3.4-5.0); ALK PHOS 69 U/L (45-117); ANION GAP 9 MMOL/L (8-16); BILIRUBIN,TOTAL 0.8 mg/dL (0.2-1); BLOOD UREA NITROGEN 15.2 mg/dL (7-18); CALCIUM 9.5 mg/dL (8.5-10.1); CHLORIDE 108 mmol/L (98-107); CO2 25 mmol/L (21-32); CREATININE 0.8 mg/dL (0.55-1.3); GLUCOSE,RANDOM 80 mg/dL (74-106); IRON SERUM 44 ug/dL (50-175); POTASSIUM 4.7 mmol/L (3.5-5.1); SGOT/AST 29 U/L (15-37); SGPT/ALT 14 U/L (13-61); SODIUM 142 mmol/L (136-145); TOT PROT 6.6 g/dl (6.4-8.2); TOTAL IRON BINDING CAPACITY 357 ug/dL (250-450)
--- NOTE | 2019-10-14 14:39 | PDOC ---
History of Present Illness - General Chief Complaint: Diarrhea Stated Complaint: DIARRHEA Time Seen by Provider: 10/14/19 13:04 History Source: Patient, Family Exam Limitations: No Limitations - History of Present Illness Initial Comments: 84 y/o F, pmy of a-fib, htn, hld, OA, spinal stenosis, peripheral neuropathy, essential tremor, presents w/ nbnb watery, brown green diarrhea of 3 day duration that has worsened since onset. Pt reports that she had eaten eggplant parmesian take out the night before her symptoms began. No one else around her experienced these symptoms. Pt did not try to take anything for the diarrhea. She was previously seen in the hospital for A-fib with RVR. In the ED today, her rhythm is irregular and rate is tachy. She also reports significant b/l swelling, which has present for a few weeks and she sees her piano bench assembler, Christiano [facility]ley [facility], who recently took her off her lasix. Denies f/c/n/v/d/sob/ chest pain/abdominal pain. 10/14/19 15:01 Timing/Duration: reports: changing over time, intermittent Quality: reports: moderate Abdominal Pain Onset Location: denies: RUQ, LUQ, RLQ, LLQ, epigastric, periumbilical, suprapubic, generalized abdomen Pain Radiation: reports: no radiation Activities at Onset: reports: none Aggravating Factors: improves with: None Alleviating Factors: improves with: None Past History - Travel Traveled outside of the country in the last 30 days: No Close contact w/someone who was outside of country & ill: No - Past Medical History Allergies/Adverse Reactions: Allergies Allergy/AdvReac Type Severity Reaction Status Date / Time diazepam [From Valium] AdvReac HYPER/ANXIO Verified 01/24/18 10:42 US Home Medications: Ambulatory Orders Simvastatin [Zocor -] 20 mg PO HS 08/21/12 Diclofenac Sodium 100 mg PO BID 01/24/18 Gabapentin [Neurontin -] 600 mg PO DAILY 01/24/18 Apixaban [Eliquis] 5 mg PO BID 09/21/19 Ferrous Sulfate [Feosol] 325 mg PO BID #60 ud 09/24/19 Sotalol HCl [Betapace -] 40 mg PO BID #60 tablet 09/24/19 Valsartan [Diovan] 40 mg PO DAILY #30 tablet 09/24/19 Anemia: No Asthma: No Cardiac Disorders: Yes (A.fib) CVA: Yes (TIA) COPD: No CHF: No Diabetes: No GI Disorders: No HTN: Yes Hypercholesterolemia: Yes - Surgical History Abdominal Surgery: Yes Cholecystectomy: Yes - Immunization History Immunization Up to Date: Yes - Psycho Social/Smoking Cessation Hx Smoking Status: No Smoking History: Never smoked Have you smoked in the past 12 months: No Number of Cigarettes Smoked Daily: 0 Information on smoking cessation initiated: No Hx Alcohol Use: No Drug/Substance Use Hx: No Substance Use Type: None Hx Substance Use Treatment: No Abd/GI Specific PMHX - Complaint Specific PMHX Colitis: No Diverticulitis: No Gall Bladder Disease: No Pancreatitis: No Review of Systems - Review of Systems Able to Perform ROS?: Yes Is the patient limited Icelandic proficient: No Constitutional: Yes: Symptoms Reported, Weight Stable. No: Chills, Diaphoresis , Fever HEENTM: Yes: Symptoms Reported Respiratory: Yes: Symptoms reported. No: Cough, Shortness of Breath Cardiac (ROS): Yes: Symptoms Reported, Irregular Heart Rate. No: Chest Pain, Edema ABD/GI: Yes: Symptoms Reported, Poor Fluid Intake, Tarry Stools. No: Diarrhea, Nausea, Vomiting : Yes: Symptoms Reported, Dysuria Musculoskeletal: Yes: Symptoms Reported Integumentary: Yes: Symptoms Reported, Dryness Neurological: Yes: Symptoms reported. No: Headache, Numbness, Tingling All Other Systems: Reviewed and Negative *Physical Exam - Vital Signs Last Vital Signs Temp Pulse Resp BP Pulse Ox 98.2 F 109 H 16 136/67 94 L 10/14/19 13:03 10/14/19 13:35 10/14/19 13:35 10/14/19 13:35 10/14/19 13:35 - Physical Exam General Appearance: Yes: Nourished, Appropriately Dressed HEENT: positive: EOMI, DORITA, Normal ENT Inspection, Pharynx Normal Neck: positive: Trachea midline, Normal Thyroid, Supple Respiratory/Chest: positive: Lungs Clear, Normal Breath Sounds Cardiovascular: positive: S1, S2, Tachycardia, Irregularly Irregular. negative : Regular Rhythm, Regular Rate, Murmur, Gallop/S3, Gallop/S4 Vascular Pulses: Dorsalis-Pedis (R): 2+, Doralis-Pedis (L): 2+ Gastrointestinal/Abdominal: positive: Normal Bowel Sounds, Soft. negative: Increased Bowel Sounds, Distended, Guarding, Rebound, Tenderness Musculoskeletal: positive: Normal Inspection Integumentary: positive: Normal Color, Dry Neurologic: positive: Fully Oriented, Alert, Normal Mood/Affect ED Treatment Course - LABORATORY CBC & Chemistry Diagram: 10/14/19 13:30 10/14/19 13:30 - ADDITIONAL ORDERS Additional order review: Laboratory Results 10/14/19 10/14/19 10/14/19 13:30 13:30 13:30 PT with INR 18.10 H INR 1.53 H PTT (Actin FS) 40.2 H Sodium 142 Potassium 4.7 Chloride 108 H Carbon Dioxide 25 Anion Gap 9 BUN 15.2 Creatinine 0.8 Est GFR (CKD-EPI)AfAm 78.47 Est GFR (CKD-EPI)NonAf 67.70 Random Glucose 80 Lactic Acid 1.4 Calcium 9.5 Iron 44 L TIBC 357 Iron Saturation 12 L Unsaturated IBC 313 H Total Bilirubin 0.8 AST 29 ALT 14 Alkaline Phosphatase 69 Troponin I < 0.02 Total Protein 6.6 Albumin 3.2 L - Medications Given in the ED: ED Medications Discontinued Medications Generic Name Dose Route Start Last Admin Trade Name Freq PRN Reason Stop Dose Admin Sodium Chloride 1,000 ml 10/14/19 13:26 10/14/19 13:29 Normal Saline - IV 10/14/19 13:27 1,000 ml ONCE ONE Administration Medical Decision Making - Medical Decision Making 84 y/o F, pmy of a-fib, htn, hld, OA, spinal stenosis, peripheral neuropathy, essential tremor, presents w/ nbnb watery, brown green diarrhea of 3 day duration that has worsened since onset #Diarrhea likely 2/2 to functional vs travelers r/o infectious causes No fevers, chills, n/v, abd pain CBC, CMP, mag EKG Iron-TIBC UA- negative IVF 1 bag monitor lytes #Afib w/ RVR BP stable 120/82 HR in 90s clinically stable 10/14/19 15:08 10/14/19 15:16 10/14/19 18:07 Discharge - Discharge Information Problems reviewed: Yes Clinical Impression/Diagnosis: Diarrhea Qualifiers: Diarrhea type: unspecified type Qualified Code(s): R19.7 - Diarrhea, unspecified Condition: Improved Disposition: HOME - Admission No - Follow up/Referral - Patient Discharge Instructions Patient Printed Discharge Instructions: How to Avoid Traveler's Diarrhea, Diarrhea Additional Instructions: You were seen in the Emergency room for diarrhea While you were in the emergency room, we evaluated you with lab work, blood work , and EKG. We treated you with medications and your symptoms improved To relieve your diarrhea, you can take Lopermide as needed, over the counter medication Please take all your medications as prescribed Please follow up with your primary care physician within 1 week Return to the emergency room, if you experience worsening of your symptoms, nausea, vomiting, diarrhea, chest pain or any other worsening of condition. - Post Discharge Activity
[2019-10-14 14:40] LABS: URINE APPEARANCE CLEAR; URINE BILIRUBIN NEGATIVE (NEGATIVE); URINE COLOR YELLOW; URINE GLUCOSE (UA) NEGATIVE (NEGATIVE); URINE KETONE 1+ (NEGATIVE); URINE LEUK ESTERASE NEGATIVE (NEGATIVE); URINE NITRITE NEGATIVE (NEGATIVE); URINE PROTEIN NEGATIVE (NEGATIVE)
[2019-10-14 15:21] LABS: RETICULOCYTES 1.83 % (0.5-1.5)
--- NOTE | 2019-10-14 15:39 | PDOC ---
Attending Attestation - Resident Resident Name: Ced Arshad - ED Attending Attestation I have performed the following: I have examined & evaluated the patient, The case was reviewed & discussed with the resident, I agree w/resident's findings & plan - HPI HPI: 10/14/19 15:38 84 F PMH HTN, HLD, Atrial fibrillation (on apixaban), osteoarthritis, spinal stenosis, peripheral neuropathy, essential tremor who presents to the ED with diarrhea x 3-4 days. nbnb watery, brown green diarrhea. Pt reports that she had eaten eggplant parmesian take out the night before her symptoms began. No one else around her experienced these symptoms. Pt did not try to take anything for the diarrhea. She was previously seen in the hospital for A-fib with RVR. she sees her hematologist, Christiano Streeter for Afib (anticoagulated), who recently took her off her lasix. Denies f/c/n/v/d/sob/chest pain/abdominal pain. Echo in 09/2019: The left ventricle is normal in size. Left ventricular systolic function is normal. The right ventricle is normal size. The right ventricular systolic function is normal. The left atrium is moderately dilated. The right atrium is moderately dilated. There is mild to moderate mitral regurgitation. There is mild to moderate tricuspid regurgitation. Right ventricular systolic pressure is elevated at 50-60mmHg. There is moderate pulmonary hypertension. Fibrocalcific aortic valve with no stenosis. Trace pulmonic valvular regurgitation. There is no pericardial effusion. Admitted 09/21 to 09/24 for Afib RVR, rate controlled then DC ccardioversion; dc d on sotalol and valsartan, AC on Apixaban. 10/14/19 15:38 10/14/19 15:39 10/16/19 09:46 - Physicial Exam PE: 10/14/19 15:38 Agree with the resident's HPI and PE as documented in the electronic medical record. NAD, well appearing, EOMI, PERRL, nl conjunctiva, anicteric; neck supple. lungs clear, irregularly irregular, +tachycardic., abdomen soft nontender. obese abdomen, no rebound, guarding. no flank tenderness. Back nontender. REY x4 , no focal neuro deficits. +BLE peripheral edema (chronic lymphedema). normal color for ethnicity, WWP. 10/14/19 15:39 10/14/19 17:27 10/14/19 17:29 - Medical Decision Making 10/14/19 15:39 Vital Signs Temp Pulse Resp BP Pulse Ox 98.2 F 109 H 16 136/67 94 L 10/14/19 13:03 10/14/19 13:35 10/14/19 13:35 10/14/19 13:35 10/14/19 13:35 Laboratory results are within normal limits, no longer having anemia which is improved from previous, coags are also within normal limits. Electrolytes normal, troponin is negative, urinalysis is negative for prelim infection. Per request the patient wanted to check her anemia and iron levels, with mildly low iron levels. Lactic acid is also normal so unlikely to be any evidence of dehydration or ischemia Patient was given IV fluids here for hydration feels improved repeat VS with downtrending HR in the low 100s, baseline Afib with initial RVR 2 /2 volume loss/diarrheal illness. pt does not appear toxic or septic. abdomen is soft nontender. on anticoagulation, so doubt VTE or clots in baseline lymphedema in LE. D/W pt and family, likely viral AGE with sick contacts, young grand children with diarrhea and viral illness contact precautions, hand hygiene, hydration/gatorade, soups. DC stable condition, return precautions, supportive care, PCP followup as outpatient. 10/14/19 17:28 10/14/19 17:29 10/16/19 09:47 10/16/19 09:48 Heart Score/ECG Review #1 ECG reviewed & interpreted by me at: 13:15 General ECG Interpretation: Normal Intervals 10/14/19 15:40 Atrial fibrillation closer to 114 bpm, low voltage waves, narrow QRS, RVR is noted likely due to hypovolemia/dehydration.
[2019-10-14 19:38] VITALS: BP 126/60; PULSE 113; TEMP 97.7
--- NOTE | 2019-10-15 10:16 | EKG ---
Test Reason : Blood Pressure : / mmHG Vent. Rate : 134 BPM Atrial Rate : 340 BPM P-R Int : 000 ms QRS Dur : 082 ms QT Int : 262 ms P-R-T Axes : 000 -11 -35 degrees QTc Int : 391 ms ATRIAL FIBRILLATION LOW VOLTAGE QRS CANNOT RULE OUT ANTERIOR INFARCT , AGE UNDETERMINED ABNORMAL ECG Confirmed by Keegan Jack MD ([id number]) on 10/15/2019 10:16:20 AM Referred By: Confirmed By:Keegan Jack MD
== END 2019-10-14 16:22 | disposition home or self-care (01) ==
LOC: JER 12:34
DX: R19.7 Diarrhea, unspecified (principal); I48.20 Chronic atrial fibrillation, unspecified; Z79.01 Long term (current) use of anticoagulants; M19.90 Unspecified osteoarthritis, unspecified site; M48.00 Spinal stenosis, site unspecified; G62.9 Polyneuropathy, unspecified; G25.0 Essential tremor; Z88.8 Allergy status to other drugs, medicaments and biological substances
CPT/HCPCS: 36415; 80053; 81003; 83540; 83550; 83605; 83735; 84484; 85025; 85044; 85610; 85730; 87086; 93005; 93010; 99283-25

== ENCOUNTER 2021-08-25 23:51 | Inpatient (IN) | payer OTHER, BC ==
[2021-08-26 00:07] VITALS: BMI 38.9
[2021-08-26 03:12] LABS: HEMATOCRIT 39.7 % (32.4-45.2); HEMOGLOBIN 12.9 GM/dL (10.7-15.3); MCH 27.6 pg (25.7-33.7); MCHC 32.6 g/dl (32.0-36.0); MEAN CELL VOLUME 84.6 fl (80-96); MEAN PLT VOLUME 9.5 fl (7.5-11.1); PLATELET COUNT 178 10^3/uL (134-434); RDW 15.4 % (11.6-15.6); WHITE BLOOD COUNT 14.5 K/mm3 (4.0-10.0)
[2021-08-26 03:32] LABS: CHLORIDE 106 mmol/L (98-107); SODIUM 139 mmol/L (136-145)
[2021-08-26 03:35] LABS: ALBUMIN 2.9 g/dl (3.4-5.0); ANION GAP 7 MMOL/L (8-16); BLOOD UREA NITROGEN 15.4 mg/dL (7-18); CALCIUM 9.2 mg/dL (8.5-10.1); CO2 26 mmol/L (21-32)
[2021-08-26 03:36] LABS: GLUCOSE,RANDOM 102 mg/dL (74-106)
[2021-08-26 03:38] LABS: CREATININE 0.9 mg/dL (0.55-1.3); SGOT/AST 18 U/L (15-37); SGPT/ALT 14 U/L (13-61)
[2021-08-26 03:39] LABS: BILIRUBIN,TOTAL 1.2 mg/dL (0.2-1)
[2021-08-26 03:41] LABS: EPI CELLS >36 /uL (0-25.1); HYALINE CASTS 5 /uL (0-3.1); URINE APPEARANCE CLOUDY; URINE BACTERIA 894 /uL (0-1359); URINE BILIRUBIN NEGATIVE (NEGATIVE); URINE COLOR DK YELLOW; URINE GLUCOSE (UA) NEGATIVE (NEGATIVE); URINE KETONE TRACE (NEGATIVE); URINE LEUK ESTERASE 3+ (NEGATIVE); URINE NITRITE NEGATIVE (NEGATIVE); URINE PROTEIN NEGATIVE (NEGATIVE); URINE RBC 30 /uL (0-23.9); URINE WBC 1331 /uL (0-25.8)
[2021-08-26 03:41] LABS: ALK PHOS 57 U/L (45-117)
[2021-08-26] MEDS ORDERED: SODIUM CHLORIDE 500 ML IV STA ×2 (03:47→04:44)
[2021-08-26] MEDS ORDERED: CEFTRIAXONE 1,000 MG in DEXTROSE 5%-WATER - 50 ML IVPB ONE (04:22)
[2021-08-26] MEDS ORDERED: CEFTRIAXONE 1 GM/50 ML BAG ONE (04:29)
[2021-08-26] MEDS ORDERED: SODIUM CHLORIDE 1,000 ML IV STA (05:14)
[2021-08-26 05:19] LABS: ANISOCYTOSIS 1+; MACROCYTOSIS 0; PLATELET ESTIMATE NORMAL
[2021-08-26] MEDS ORDERED: PIPERACILLIN/TAZOB 3.375 GM 3.375 GM in DEXTROSE 5%-WATER - 50 ML IVPB SCH (06:00)
[2021-08-26] MEDS ORDERED: PIPERACILLIN/TAZOB 3.375 GM 3.375 GM/50 ML BAG IVPB ONE (06:11)
[2021-08-26 06:37] LABS: YEAST PRESENT (NEGATIVE)
[2021-08-26 07:00] LABS: HEMATOCRIT 39.1 % (32.4-45.2); MCH 27.9 pg (25.7-33.7); MCHC 33.3 g/dl (32.0-36.0); MEAN CELL VOLUME 83.9 fl (80-96); MEAN PLT VOLUME 9.7 fl (7.5-11.1); PLATELET COUNT 175 10^3/uL (134-434); RBC 4.66 M/mm3 (3.60-5.2); RDW 15.1 % (11.6-15.6); WHITE BLOOD COUNT 14.6 K/mm3 (4.0-10.0)
[2021-08-26 07:08] LABS: CALCIUM 8.8 mg/dL (8.5-10.1)
[2021-08-26 07:09] LABS: ALBUMIN 2.9 g/dl (3.4-5.0); MAGNESIUM 2.1 mg/dL (1.8-2.4)
[2021-08-26 07:12] LABS: CREATININE 0.9 mg/dL (0.55-1.3); PHOSPHOROUS 3.3 mg/dL (2.5-4.9)
[2021-08-26 07:13] LABS: BILIRUBIN,TOTAL 1.2 mg/dL (0.2-1)
[2021-08-26 09:09] LABS: ANISOCYTOSIS 1+; MACROCYTOSIS 0; PLATELET ESTIMATE NORMAL
[2021-08-26] MEDS ORDERED: PIPERACILLIN/TAZOB 3.375 GM 3.375 GM/50 ML BAG IVPB SCH (10:00)
[2021-08-26] MEDS ORDERED: APIXABAN 2.5 MG TABLET PO SCH (10:00)
[2021-08-26] MEDS ORDERED: APIXABAN 5 MG TABLET PO SCH (10:00)
[2021-08-26] MEDS: LIP BALM (CHAPSTICK) TP SCH ×3 (16:00→22:10)
[2021-08-26] MEDS ORDERED: PIPERACILLIN/TAZOBACTAM 3.375 GM VIAL IVPB ONE (18:06)
[2021-08-26] MEDS ORDERED: DEXTROSE 5%-WATER - 50 ML IVPB ONE (18:07)
[2021-08-26] MEDS: PIPERACILLIN/TAZOB 3.375 GM 3.375 GM in DEXTROSE 5%-WATER - 50 ML IVPB SCH (18:53)
[2021-08-26] MEDS: ATORVASTATIN CA 10 MG TABLET (FP) PO SCH (21:17)
[2021-08-26] MEDS: APIXABAN 5 MG TABLET PO SCH (21:17)
[2021-08-27] MEDS ORDERED: DEXTROSE 5%-WATER - 50 ML IVPB ONE ×3 (01:19→16:50)
[2021-08-27] MEDS ORDERED: PIPERACILLIN/TAZOBACTAM 3.375 GM VIAL IVPB ONE ×3 (01:19→16:50)
[2021-08-27] MEDS: PIPERACILLIN/TAZOB 3.375 GM 3.375 GM in DEXTROSE 5%-WATER - 50 ML IVPB SCH ×3 (01:29→17:11)
[2021-08-27] MEDS: LIP BALM (CHAPSTICK) TP SCH ×6 (04:03→22:55)
[2021-08-27 07:58] LABS: HEMOGLOBIN 12.3 GM/dL (10.7-15.3); MCHC 33.4 g/dl (32.0-36.0); MEAN CELL VOLUME 83.8 fl (80-96); MEAN PLT VOLUME 9.6 fl (7.5-11.1); PLATELET COUNT 136 10^3/uL (134-434); RBC 4.41 M/mm3 (3.60-5.2); RDW 15.2 % (11.6-15.6)
[2021-08-27 08:23] LABS: CALCIUM 8.6 mg/dL (8.5-10.1)
[2021-08-27 08:25] LABS: BLOOD UREA NITROGEN 10.8 mg/dL (7-18)
[2021-08-27 08:28] LABS: CREATININE 0.8 mg/dL (0.55-1.3)
[2021-08-27] MEDS ORDERED: PT OWN MED DRAWER 7, Y5N ONE ×2 (09:31→20:54)
[2021-08-27] MEDS ORDERED: GABAPENTIN 100 MG CAPSULE PO SCH (10:00)
[2021-08-27] MEDS: APIXABAN 5 MG TABLET PO SCH ×2 (10:16→21:37)
[2021-08-27] MEDS: ATORVASTATIN CA 10 MG TABLET (FP) PO SCH (21:38)
[2021-08-27] MEDS: GABAPENTIN 300 MG CAPSULE PO SCH (21:38)
[2021-08-28] MEDS ORDERED: PIPERACILLIN/TAZOBACTAM 3.375 GM VIAL IVPB ONE ×3 (01:24→16:50)
[2021-08-28] MEDS ORDERED: DEXTROSE 5%-WATER - 50 ML IVPB ONE ×3 (01:25→16:50)
[2021-08-28] MEDS: PIPERACILLIN/TAZOB 3.375 GM 3.375 GM in DEXTROSE 5%-WATER - 50 ML IVPB SCH ×3 (01:44→18:15)
[2021-08-28] MEDS: LIP BALM (CHAPSTICK) TP SCH ×6 (02:05→22:10)
[2021-08-28 07:01] LABS: HEMATOCRIT 38.7 % (32.4-45.2); HEMOGLOBIN 12.7 GM/dL (10.7-15.3); MCH 27.6 pg (25.7-33.7); MCHC 32.7 g/dl (32.0-36.0); MEAN CELL VOLUME 84.4 fl (80-96); MEAN PLT VOLUME 9.6 fl (7.5-11.1); PLATELET COUNT 155 10^3/uL (134-434); RBC 4.59 M/mm3 (3.60-5.2); RDW 15.6 % (11.6-15.6); WHITE BLOOD COUNT 6.2 K/mm3 (4.0-10.0)
[2021-08-28 07:16] LABS: BLOOD UREA NITROGEN 9.7 mg/dL (7-18); CALCIUM 8.7 mg/dL (8.5-10.1); MAGNESIUM 2.1 mg/dL (1.8-2.4)
[2021-08-28 07:19] LABS: CREATININE 0.8 mg/dL (0.55-1.3); PHOSPHOROUS 3.5 mg/dL (2.5-4.9)
[2021-08-28] MEDS: APIXABAN 5 MG TABLET PO SCH ×2 (10:31→21:40)
[2021-08-28] MEDS: LOSARTAN POTASSIUM 25 MG TABLET PO SCH (10:37)
[2021-08-28] MEDS: ATORVASTATIN CA 10 MG TABLET (FP) PO SCH (21:40)
[2021-08-28] MEDS: GABAPENTIN 300 MG CAPSULE PO SCH (21:40)
[2021-08-29] MEDS: LIP BALM (CHAPSTICK) TP SCH ×2 (04:00→06:49)
[2021-08-29 07:40] LABS: HEMATOCRIT 40.1 % (32.4-45.2); MCH 27.9 pg (25.7-33.7); MCHC 32.4 g/dl (32.0-36.0); MEAN PLT VOLUME 9.9 fl (7.5-11.1); PLATELET COUNT 173 10^3/uL (134-434); RBC 4.66 M/mm3 (3.60-5.2); RDW 15.9 % (11.6-15.6); WHITE BLOOD COUNT 5.1 K/mm3 (4.0-10.0)
[2021-08-29 07:57] LABS: BLOOD UREA NITROGEN 10.3 mg/dL (7-18); CALCIUM 8.9 mg/dL (8.5-10.1)
[2021-08-29] MEDS ORDERED: AMOX TR/POT CLAV 875MG/125MG TABLETS (FP) PO SCH (08:00)
[2021-08-29 08:01] LABS: CREATININE 0.8 mg/dL (0.55-1.3)
[2021-08-29 09:33] VITALS: BP 110/77; PULSE 104; TEMP 97.7
[2021-08-29] MEDS: APIXABAN 5 MG TABLET PO SCH (09:48)
[2021-08-29] MEDS: LOSARTAN POTASSIUM 25 MG TABLET PO SCH (09:48)
== END 2021-08-29 11:19 | disposition home or self-care (01) | DRG 690 ==
LOC: JER 23:51 → JERBED 08-26 04:56 → J4S 08-26 10:43
PROVIDERS: ADMIT Internal Medicine; ATTEND Internal Medicine
DX: N39.0 Urinary tract infection, site not specified (principal); I10 Essential (primary) hypertension; E78.5 Hyperlipidemia, unspecified; G62.9 Polyneuropathy, unspecified; M48.00 Spinal stenosis, site unspecified; I48.91 Unspecified atrial fibrillation; I11.0 Hypertensive heart disease with heart failure; I50.9 Heart failure, unspecified; I89.0 Lymphedema, not elsewhere classified; K02.9 Dental caries, unspecified; D72.829 Elevated white blood cell count, unspecified; I95.9 Hypotension, unspecified; E66.9 Obesity, unspecified; Z68.39 Body mass index [BMI] 39.0-39.9, adult; Z86.73 Personal history of transient ischemic attack (TIA), and cerebral infarction without residual deficits; R25.1 Tremor, unspecified
CPT/HCPCS: 36415; 71046-TC-FY; 71250-TC; 80048; 80053; 81003; 82550; 83605; 83735; 84100; 84443; 84484; 85025; 85027; 87040; 87077; 87086; 93005; 93010; 93970-TC; 97116-GP; 97161-GP; 99285-25; C9803; U0003; U0005

== ENCOUNTER 2021-09-24 07:50 | Inpatient (IN) | payer OTHER, BC ==
[2021-09-24 08:19] VITALS: BMI 40.7
[2021-09-24] MEDS ORDERED: METHOCARBAMOL 500 MG TABLET PO ONE (08:57)
[2021-09-24] MEDS ORDERED: LIDOCAINE 5% TOPICAL PATCH TP ONE (08:57)
[2021-09-24] MEDS ORDERED: ACETAMINOPHEN 500 MG TABLET (FP) PO ONE (08:57)
[2021-09-24] MEDS ORDERED: METHOCARBAMOL 500 MG TABLET ONE (09:11)
[2021-09-24] MEDS ORDERED: ACETAMINOPHEN 325 MG TABLET (FP) ONE (09:11)
[2021-09-24] MEDS ORDERED: LIDOCAINE 5% TOPICAL PATCH ONE (09:11)
[2021-09-24] MEDS ORDERED: ACETAMINOPHEN 325 MG TABLET (FP) PO PRN (13:58)
[2021-09-24 16:19] LABS: EOS % 1.4 % (0-4.5); HEMATOCRIT 41.8 % (32.4-45.2); HEMOGLOBIN 13.5 GM/dL (10.7-15.3); LYMPH % 24.3 % (8-40); MCH 27.5 pg (25.7-33.7); MCHC 32.2 g/dl (32.0-36.0); MEAN CELL VOLUME 85.4 fl (80-96); MEAN PLT VOLUME 9.7 fl (7.5-11.1); MONO % 6.4 % (3.8-10.2); NEUT % 66.9 % (42.8-82.8); PLATELET COUNT 241 10^3/uL (134-434); RBC 4.89 M/mm3 (3.60-5.2); RDW 15.9 % (11.6-15.6); WHITE BLOOD COUNT 8.4 K/mm3 (4.0-10.0)
[2021-09-24 16:43] LABS: BLOOD UREA NITROGEN 14.8 mg/dL (7-18); CALCIUM 9.3 mg/dL (8.5-10.1)
[2021-09-24 16:47] LABS: CREATININE 0.7 mg/dL (0.55-1.3)
[2021-09-24] MEDS ORDERED: LIDOCAINE PATCH REMOVAL MC SCH (22:00)
[2021-09-24] MEDS: ATORVASTATIN CA 10 MG TABLET (FP) PO SCH (22:43)
[2021-09-24] MEDS: APIXABAN 5 MG TABLET PO SCH (22:43)
[2021-09-25] MEDS ORDERED: ACETAMINOPHEN 1000 MG/100 ML VIAL IVPB ONE (06:16)
[2021-09-25 08:26] LABS: HEMATOCRIT 41.5 % (32.4-45.2); HEMOGLOBIN 13.7 GM/dL (10.7-15.3); MCH 27.6 pg (25.7-33.7); MCHC 32.9 g/dl (32.0-36.0); MEAN CELL VOLUME 84.1 fl (80-96); MEAN PLT VOLUME 9.8 fl (7.5-11.1); PLATELET COUNT 219 10^3/uL (134-434); RBC 4.94 M/mm3 (3.60-5.2); RDW 15.3 % (11.6-15.6); WHITE BLOOD COUNT 8.8 K/mm3 (4.0-10.0)
[2021-09-25 09:13] LABS: CALCIUM 8.9 mg/dL (8.5-10.1)
[2021-09-25 09:14] LABS: BLOOD UREA NITROGEN 13.2 mg/dL (7-18); MAGNESIUM 2.1 mg/dL (1.8-2.4)
[2021-09-25 09:16] LABS: CREATININE 0.7 mg/dL (0.55-1.3); PHOSPHOROUS 3.8 mg/dL (2.5-4.9)
[2021-09-25] MEDS: GABAPENTIN 300 MG CAPSULE PO SCH (11:25)
[2021-09-25] MEDS: APIXABAN 5 MG TABLET PO SCH ×2 (11:25→21:48)
[2021-09-25] MEDS: LOSARTAN POTASSIUM 25 MG TABLET PO SCH (11:25)
[2021-09-25] MEDS ORDERED: PT OWN MED DRAWER 7, Y5N ONE (11:28)
[2021-09-25 18:07] LABS: EPI CELLS 3 /uL (0-25.1); HYALINE CASTS 0 /uL (0-3.1); URINE APPEARANCE CLEAR; URINE BACTERIA 1508 /uL (0-1359); URINE BILIRUBIN NEGATIVE (NEGATIVE); URINE COLOR YELLOW; URINE GLUCOSE (UA) NEGATIVE (NEGATIVE); URINE KETONE NEGATIVE (NEGATIVE); URINE LEUK ESTERASE TRACE (NEGATIVE); URINE NITRITE NEGATIVE (NEGATIVE); URINE PROTEIN NEGATIVE (NEGATIVE); URINE RBC 3 /uL (0-23.9); URINE WBC 13 /uL (0-25.8)
[2021-09-25] MEDS: ATORVASTATIN CA 10 MG TABLET (FP) PO SCH (21:48)
[2021-09-26] MEDS ORDERED: ACETAMINOPHEN 1000 MG/100 ML VIAL IVPB ONE ×2 (04:54→18:20)
[2021-09-26 08:03] LABS: HEMATOCRIT 42.6 % (32.4-45.2); HEMOGLOBIN 13.7 GM/dL (10.7-15.3); MCH 27.6 pg (25.7-33.7); MCHC 32.2 g/dl (32.0-36.0); MEAN CELL VOLUME 85.6 fl (80-96); MEAN PLT VOLUME 9.8 fl (7.5-11.1); PLATELET COUNT 232 10^3/uL (134-434); RBC 4.98 M/mm3 (3.60-5.2); RDW 15.4 % (11.6-15.6); WHITE BLOOD COUNT 10.2 K/mm3 (4.0-10.0)
[2021-09-26 08:47] LABS: CALCIUM 9.3 mg/dL (8.5-10.1)
[2021-09-26 08:49] LABS: BLOOD UREA NITROGEN 10.8 mg/dL (7-18); MAGNESIUM 2.2 mg/dL (1.8-2.4)
[2021-09-26 08:50] LABS: PHOSPHOROUS 3.9 mg/dL (2.5-4.9)
[2021-09-26 08:51] LABS: CREATININE 0.7 mg/dL (0.55-1.3)
[2021-09-26] MEDS: LOSARTAN POTASSIUM 25 MG TABLET PO SCH (10:22)
[2021-09-26] MEDS: APIXABAN 5 MG TABLET PO SCH ×2 (10:22→21:33)
[2021-09-26] MEDS: GABAPENTIN 300 MG CAPSULE PO SCH (10:22)
[2021-09-26] MEDS ORDERED: PT OWN MED DRAWER 7, Y5N ONE (10:24)
[2021-09-26] MEDS: ATORVASTATIN CA 10 MG TABLET (FP) PO SCH (21:33)
[2021-09-27 08:57] LABS: BASO % 0.7 % (0-2.0); EOS % 1.2 % (0-4.5); HEMATOCRIT 39.1 % (32.4-45.2); HEMOGLOBIN 12.6 GM/dL (10.7-15.3); LYMPH % 9.3 % (8-40); MCH 27.8 pg (25.7-33.7); MCHC 32.3 g/dl (32.0-36.0); MEAN PLT VOLUME 10.4 fl (7.5-11.1); MONO % 6.2 % (3.8-10.2); NEUT % 82.6 % (42.8-82.8); PLATELET COUNT 212 10^3/uL (134-434); RBC 4.54 M/mm3 (3.60-5.2); RDW 15.7 % (11.6-15.6); WHITE BLOOD COUNT 10.8 K/mm3 (4.0-10.0)
[2021-09-27 09:21] LABS: ALBUMIN 2.3 g/dl (3.4-5.0); BLOOD UREA NITROGEN 10.2 mg/dL (7-18); PHOSPHOROUS 3.6 mg/dL (2.5-4.9)
[2021-09-27 09:22] LABS: CALCIUM 8.8 mg/dL (8.5-10.1); MAGNESIUM 2.1 mg/dL (1.8-2.4)
[2021-09-27 09:23] LABS: BILIRUBIN,TOTAL 1.2 mg/dL (0.2-1); TOT PROT 5.4 g/dl (6.4-8.2)
[2021-09-27 09:24] LABS: CREATININE 0.8 mg/dL (0.55-1.3)
[2021-09-27] MEDS ORDERED: PT OWN MED DRAWER 7, Y5N ONE (09:42)
[2021-09-27] MEDS: APIXABAN 5 MG TABLET PO SCH ×2 (09:46→21:02)
[2021-09-27] MEDS: LOSARTAN POTASSIUM 25 MG TABLET PO SCH (09:46)
[2021-09-27] MEDS: GABAPENTIN 300 MG CAPSULE PO SCH (09:47)
[2021-09-27] MEDS: LIDOCAINE 5% TOPICAL PATCH TP SCH (12:33)
[2021-09-27] MEDS: ATORVASTATIN CA 10 MG TABLET (FP) PO SCH (21:02)
[2021-09-27] MEDS ORDERED: LIDOCAINE PATCH REMOVAL MC SCH (22:00)
[2021-09-27] MEDS ORDERED: METHOCARBAMOL 500 MG TABLET PO SCH (22:00)
[2021-09-28] MEDS: APIXABAN 5 MG TABLET PO SCH (09:12)
[2021-09-28] MEDS: GABAPENTIN 300 MG CAPSULE PO SCH (09:12)
[2021-09-28] MEDS: LOSARTAN POTASSIUM 25 MG TABLET PO SCH (09:13)
[2021-09-28] MEDS: LIDOCAINE 5% TOPICAL PATCH TP SCH (09:14)
[2021-09-28 11:56] VITALS: BP 112/78; PULSE 105; TEMP 97.7
== END 2021-09-28 12:30 | disposition home health service (06) | DRG 552 ==
LOC: JER 07:50 → JERBED 12:22 → J7W 16:56
PROVIDERS: ADMIT Internal Medicine; ATTEND Internal Medicine
DX: M54.59 Other low back pain (principal); I48.19 Other persistent atrial fibrillation; M16.0 Bilateral primary osteoarthritis of hip; G62.9 Polyneuropathy, unspecified; I10 Essential (primary) hypertension
CPT/HCPCS: 36415; 73523-TC-FY; 80048; 80053; 81003; 83735; 84100; 84443; 85025; 85027; 97116-GP; 99285-25; C9803; J0131; U0003; U0005

== ENCOUNTER 2023-06-28 04:33 | Day surgery (SDC) | payer OTHER, BC ==
[2023-06-23 11:50] VITALS: BMI 35.4
[~2023-06-28 04:33] MED LIST: ACETAMINOPHEN 325 MG TABLET (FP) PO PRN
[2023-06-28] MEDS ORDERED: EPINEPHrine/PF 1 MG/1 ML (1:1,000) AMPULE ONE ×2 (07:32→07:35)
[2023-06-28] MEDS ORDERED: TETRACAINE 0.5% OPHTH SOLN 2 ML BOTTLE ONE (07:33)
[2023-06-28] MEDS ORDERED: POVIDONE-IODINE 5% OPHTHALMIC PREP 30 ML SOLUTION ONE (07:33)
[2023-06-28] MEDS ORDERED: CYCLOPENTOLATE HCL 1% OPHTH SOLN 2 ML BOTTLE ONE (07:54)
[2023-06-28] MEDS ORDERED: PHENYLEPHRINE 2.5% OPTHALMIC DROP 2ML BOTTLE ONE (07:55)
[2023-06-28] MEDS ORDERED: KETOROLAC TROMETHAMINE 0.5% EYE DROP 1 DROP DROPS ONE (07:55)
[2023-06-28] MEDS ORDERED: TROPICAMIDE 1% 3 ML EYE DROPS ONE (07:55)
[2023-06-28] MEDS ORDERED: OFLOXACIN 0.3% OPHTHALMIC SOLUTION 5 ML BOTTLE ONE (07:55)
[2023-06-28 07:58] VITALS: TEMP 98
[2023-06-28] MEDS: CYCLOPENTOLATE HCL 1% OPHTH SOLN 2 ML BOTTLE OP SCH ×2 (08:18→08:26)
[2023-06-28] MEDS: KETOROLAC TROMETHAMINE 0.5% EYE DROP 1 DROP DROPS OP SCH ×2 (08:18→08:26)
[2023-06-28] MEDS: TROPICAMIDE 1% OPHTH SOLN 15 ML BOTTLE OP SCH ×2 (08:18→08:26)
[2023-06-28] MEDS: PHENYLEPHRINE 2.5% OPHTH SOLN 15 ML BOTTLE OP SCH ×2 (08:18→08:27)
[2023-06-28] MEDS: OFLOXACIN 0.3% OPHTHALMIC SOLUTION 5 ML BOTTLE OP SCH ×2 (08:19→08:27)
[2023-06-28] MEDS ORDERED: MIDAZOLAM HCL 2 MG/2 ML SINGLE DOSE VIAL ONE (08:42)
[2023-06-28] MEDS ORDERED: POVIDONE-IODINE 5% OPHTHALMIC PREP 30 ML SOLUTION OS ONE (10:19)
[2023-06-28] MEDS ORDERED: TETRACAINE 0.5% HCL 0.6ML DROPPER.BOTTLE OS ONE (10:19)
[2023-06-28] MEDS ORDERED: LIDOCAINE HCL 1% PRESERVATIVE FREE - 30ML VIAL IO ONE (10:24)
[2023-06-28] MEDS ORDERED: BSS (NA/CA/MG/K) BALANCED SALT SOLUTION OPHTH SOLN 15 ML BOTTLE IO ONE (10:25)
[2023-06-28] MEDS ORDERED: CHONDROITIN SU A/HYALUR SOD 1 KIT IO ONE (10:25)
[2023-06-28] MEDS ORDERED: HYALURONATE SODIUM 23 MG/1 ML SYRINGE IO ONE (10:26)
[2023-06-28] MEDS ORDERED: TRYPAN BLUE 0.5 ML DISP.SYRIN IO ONE (10:27)
[2023-06-28] MEDS ORDERED: EPINEPHrine/PF 1 MG/1 ML (1:1,000) AMPULE IO ONE (10:29)
[2023-06-28] MEDS ORDERED: CHONDROITIN SU A/HYALUR SOD 1 KIT ONE (10:57)
[2023-06-28 11:20] VITALS: RESP 18
[2023-06-28 12:05] VITALS: BP 131/64; PULSE 64
== END 2023-06-28 12:09 | disposition home or self-care (01) ==
LOC: JASU-SURG 04:33
PROVIDERS: ATTEND Ophthalmology
PROC: 08RK3JZ Replacement of Left Lens with Synthetic Substitute, Percutaneous Approach (ICD-10-PCS; principal; 2023-06-28 10:00)
DX: H26.8 Other specified cataract (principal)
CPT/HCPCS: V2632

== ENCOUNTER 2023-10-28 12:12 | Inpatient (IN) | payer OTHER, BC ==
[2023-10-28] MEDS ORDERED: DIPHTH,PERTUSS(ACELL),TET 0.5 ML DISP.SYRIN IM ONE ×2 (15:01→17:11)
[2023-10-28] MEDS ORDERED: morphine CARPU-JECT 2 MG/1 ML DISP.SYRIN IVPUSH ONE (15:12)
[2023-10-28 16:22] LABS: BASO % 0.2 % (0-2.0); EOS % 0.2 % (0-4.5); HEMATOCRIT 41.9 % (32.4-45.2); HEMOGLOBIN 13.1 GM/dL (10.7-15.3); LYMPH % 9.5 % (8-40); MCH 26.4 pg (25.7-33.7); MCHC 31.3 g/dl (32.0-36.0); MEAN CELL VOLUME 84.3 fl (80-96); MEAN PLT VOLUME 9.8 fl (7.5-11.1); MONO % 5.8 % (3.8-10.2); NEUT % 84.3 % (42.8-82.8); PLATELET COUNT 252 10^3/uL (134-434); RBC 4.98 M/mm3 (3.60-5.2); RDW 15.2 % (11.6-15.6); WHITE BLOOD COUNT 12.3 K/mm3 (4.0-10.0)
[2023-10-28 16:40] LABS: POTASSIUM 4.6 mmol/L (3.5-5.1)
[2023-10-28 16:43] LABS: ALBUMIN 3.2 g/dl (3.4-5.0); BLOOD UREA NITROGEN 16.3 mg/dL (7-18); CALCIUM 9.7 mg/dL (8.5-10.1)
[2023-10-28 16:46] LABS: CREATININE 0.7 mg/dL (0.55-1.3)
[2023-10-28 16:48] LABS: BILIRUBIN,TOTAL 1.1 mg/dL (0.2-1); TOT PROT 6.5 g/dl (6.4-8.2)
[2023-10-28] MEDS ORDERED: ATORVASTATIN CA 10 MG TABLET (FP) ONE (22:03)
[2023-10-28] MEDS ORDERED: GABAPENTIN 300 MG CAPSULE ONE (22:03)
[2023-10-28] MEDS ORDERED: HEPARIN NA (PORCINE) 5,000 UNITS/ML 1ML VIAL ONE (22:04)
[2023-10-28] MEDS: HEPARIN NA (PORCINE) 5,000 UNITS/ML 1ML VIAL SQ SCH ×2 (22:16→22:18)
[2023-10-28] MEDS: ATORVASTATIN CA 10 MG TABLET (FP) PO SCH (22:16)
[2023-10-28] MEDS: GABAPENTIN 300 MG CAPSULE PO SCH (22:16)
[2023-10-29 04:52] VITALS: BMI 32.5
[2023-10-29] MEDS: GABAPENTIN 300 MG CAPSULE PO SCH ×2 (09:46→22:30)
[2023-10-29] MEDS: CHOLECALCIFEROL (VIT D3) 1,000 UNIT (25 MCG) TABLET PO SCH (09:46)
[2023-10-29] MEDS: LOSARTAN POTASSIUM 25 MG TABLET PO SCH (09:46)
[2023-10-29] MEDS: ENOXAPARIN NA (PORCINE) 80 MG/0.8 ML DISP.SYRIN SQ SCH ×2 (09:46→22:30)
[2023-10-29] MEDS: oxyCODONE HCL 5 MG TABLET PO PRN ×2 (12:28→22:34)
[2023-10-29 16:25] LABS: BASO % 0.4 % (0-2.0); EOS % 0.3 % (0-4.5); HEMATOCRIT 37.6 % (32.4-45.2); HEMOGLOBIN 12.2 GM/dL (10.7-15.3); LYMPH % 8.3 % (8-40); MCH 27.1 pg (25.7-33.7); MCHC 32.4 g/dl (32.0-36.0); MEAN CELL VOLUME 83.5 fl (80-96); MEAN PLT VOLUME 9.8 fl (7.5-11.1); MONO % 10.6 % (3.8-10.2); NEUT % 80.4 % (42.8-82.8); PLATELET COUNT 227 10^3/uL (134-434); RBC 4.51 M/mm3 (3.60-5.2); WHITE BLOOD COUNT 10.3 K/mm3 (4.0-10.0)
[2023-10-29 16:38] LABS: POTASSIUM 4.6 mmol/L (3.5-5.1)
[2023-10-29 16:42] LABS: CALCIUM 9.2 mg/dL (8.5-10.1)
[2023-10-29 16:43] LABS: ALBUMIN 2.8 g/dl (3.4-5.0); BLOOD UREA NITROGEN 15.8 mg/dL (7-18)
[2023-10-29 16:46] LABS: CREATININE 0.7 mg/dL (0.55-1.3)
[2023-10-29 16:47] LABS: BILIRUBIN,TOTAL 0.9 mg/dL (0.2-1); TOT PROT 5.9 g/dl (6.4-8.2)
[2023-10-29] MEDS: ATORVASTATIN CA 10 MG TABLET (FP) PO SCH (22:30)
[2023-10-30 09:50] LABS: BASO % 0.1 % (0-2.0); HEMOGLOBIN 11.6 GM/dL (10.7-15.3); LYMPH % 4.5 % (8-40); MCH 26.9 pg (25.7-33.7); MCHC 31.4 g/dl (32.0-36.0); MEAN CELL VOLUME 85.8 fl (80-96); MONO % 5.9 % (3.8-10.2); NEUT % 89.5 % (42.8-82.8); PLATELET COUNT 166 10^3/uL (134-434); RBC 4.31 M/mm3 (3.60-5.2); RDW 15.4 % (11.6-15.6); WHITE BLOOD COUNT 13.2 K/mm3 (4.0-10.0)
[2023-10-30] MEDS ORDERED: SODIUM CHLORIDE 500 ML IV STA (10:26)
[2023-10-30 10:47] LABS: ALBUMIN 2.7 g/dl (3.4-5.0); BLOOD UREA NITROGEN 21.4 mg/dL (7-18); CALCIUM 9.6 mg/dL (8.5-10.1); MAGNESIUM 1.9 mg/dL (1.8-2.4)
[2023-10-30 10:50] LABS: CREATININE 0.8 mg/dL (0.55-1.3)
[2023-10-30 10:52] LABS: BILIRUBIN,TOTAL 1.6 mg/dL (0.2-1); TOT PROT 6.2 g/dl (6.4-8.2)
[2023-10-30] MEDS: ENOXAPARIN NA (PORCINE) 80 MG/0.8 ML DISP.SYRIN SQ SCH (11:01)
[2023-10-30] MEDS: GABAPENTIN 300 MG CAPSULE PO SCH ×2 (11:01→21:33)
[2023-10-30] MEDS: CHOLECALCIFEROL (VIT D3) 1,000 UNIT (25 MCG) TABLET PO SCH (11:01)
[2023-10-30] MEDS: LOSARTAN POTASSIUM 25 MG TABLET PO SCH (13:05)
[2023-10-30] MEDS: ACETAMINOPHEN 500 MG TABLET (FP) PO PRN (13:13)
[2023-10-30] MEDS: SODIUM CHLORIDE 1,000 ML IV SCH (13:14)
[2023-10-30] MEDS ORDERED: LOSARTAN POTASSIUM 25 MG TABLET PO SCH (17:53)
[2023-10-30] MEDS: oxyCODONE HCL 5 MG TABLET PO PRN (21:31)
[2023-10-30] MEDS: APIXABAN 2.5 MG TABLET PO SCH (21:33)
[2023-10-30] MEDS: ATORVASTATIN CA 10 MG TABLET (FP) PO SCH (21:33)
[2023-10-31] MEDS: ACETAMINOPHEN 500 MG TABLET (FP) PO PRN (01:17)
[2023-10-31] MEDS: oxyCODONE HCL 5 MG TABLET PO PRN ×2 (06:00→13:41)
[2023-10-31 09:10] LABS: HEMATOCRIT 37.7 % (32.4-45.2); HEMOGLOBIN 11.8 GM/dL (10.7-15.3); MCH 26.9 pg (25.7-33.7); MCHC 31.4 g/dl (32.0-36.0); MEAN CELL VOLUME 85.5 fl (80-96); MEAN PLT VOLUME 9.8 fl (7.5-11.1); PLATELET COUNT 156 10^3/uL (134-434); WHITE BLOOD COUNT 10.2 K/mm3 (4.0-10.0)
[2023-10-31 09:46] LABS: POTASSIUM 4.1 mmol/L (3.5-5.1)
[2023-10-31 09:58] LABS: BLOOD UREA NITROGEN 28.7 mg/dL (7-18)
[2023-10-31] MEDS ORDERED: LIDOCAINE 4% PATCH TP SCH (10:00)
[2023-10-31 10:01] LABS: CALCIUM 8.5 mg/dL (8.5-10.1)
[2023-10-31 10:02] LABS: ALBUMIN 2.4 g/dl (3.4-5.0); MAGNESIUM 1.3 mg/dL (1.8-2.4)
[2023-10-31 10:03] LABS: TOT PROT 5.6 g/dl (6.4-8.2)
[2023-10-31 10:07] LABS: BILIRUBIN,TOTAL 2.4 mg/dL (0.2-1)
[2023-10-31 10:35] LABS: ANISOCYTOSIS 2+; MACROCYTOSIS 0
[2023-10-31] MEDS: GABAPENTIN 300 MG CAPSULE PO SCH (10:52)
[2023-10-31] MEDS: APIXABAN 2.5 MG TABLET PO SCH (10:52)
[2023-10-31] MEDS: CHOLECALCIFEROL (VIT D3) 1,000 UNIT (25 MCG) TABLET PO SCH (10:53)
[2023-10-31] MEDS: SODIUM CHLORIDE 1,000 ML IV SCH (13:42)
[2023-10-31] MEDS ORDERED: DEXAMETHASONE 6 MG TABLET PO SCH (14:45)
[2023-10-31] MEDS ORDERED: REMDESIVIR 200 MG in SODIUM CHLORIDE 250 ML IVPB ONE (15:00)
[2023-10-31] MEDS ORDERED: DEXAMETHASONE 4 MG TABLET (FP) PO SCH (15:15)
[2023-10-31 15:48] VITALS: RESP 20
[2023-10-31] MEDS ORDERED: oxyCODONE HCL 5 MG TABLET PO PRN (16:48)
[2023-10-31] MEDS ORDERED: ALBUTEROL SO4 2.5/IPRATROPIUM 0.5 INH SOL 3 ML VIAL.NEB. NEB PRN (17:14)
[2023-10-31] MEDS ORDERED: MAGNESIUM SULFATE IN WATER 4 GM/50 ML BAG IVPB ONE (17:42)
[2023-10-31] MEDS ORDERED: ALBUTEROL SO4 2.5/IPRATROPIUM 0.5 INH SOL 3 ML VIAL.NEB. NEB ONE (17:45)
[2023-10-31] MEDS ORDERED: BACITRACIN ZINC 15 GM TUBE TOPICAL OINTMENT TP SCH (18:00)
[2023-10-31] MEDS ORDERED: MAGNESIUM 4GM/H20 - 4 GM/100 ML IVPB IVPB ONE (18:05)
[2023-10-31] MEDS ORDERED: FUROSEMIDE 40 MG/4 ML INJECTABLE VIAL IVPUSH ONE (18:43)
[2023-10-31 19:13] VITALS: BP 116/60; PULSE 119; TEMP 98.5
[2023-10-31] MEDS ORDERED: ALBUTEROL SO4 2.5/IPRATROPIUM 0.5 INH SOL 3 ML VIAL.NEB. NEB SCH (20:00)
[2023-10-31] MEDS ORDERED: LIDOCAINE PATCH REMOVAL MC SCH (22:00)
== END 2023-10-31 20:45 | disposition expired | DRG 562 ==
LOC: JER 12:12 → JERBED 15:53 → J7W 10-29 04:28
PROVIDERS: ADMIT Internal Medicine; ATTEND Nurse Practitioner
PROC: 2W3AX1Z Immobilization of Right Upper Arm using Splint (ICD-10-PCS; 2023-10-28)
PROC: XW033E5 Introduction of Remdesivir Anti-infective into Peripheral Vein, Percutaneous Approach, New Technology Group 5 (ICD-10-PCS; principal; 2023-10-31)
PROC: 3E0333Z Introduction of Anti-inflammatory into Peripheral Vein, Percutaneous Approach (ICD-10-PCS; 2023-10-31)
DX: S42.491A Other displaced fracture of lower end of right humerus, initial encounter for closed fracture (principal); U07.1 COVID-19; J90 Pleural effusion, not elsewhere classified; I48.91 Unspecified atrial fibrillation; I10 Essential (primary) hypertension; M25.562 Pain in left knee; E78.5 Hyperlipidemia, unspecified; I95.9 Hypotension, unspecified; G62.9 Polyneuropathy, unspecified; M16.0 Bilateral primary osteoarthritis of hip; I89.0 Lymphedema, not elsewhere classified; S51.812A Laceration without foreign body of left forearm, initial encounter; W18.11XA Fall from or off toilet without subsequent striking against object, initial encounter; Y92.091 Bathroom in other non-institutional residence as the place of occurrence of the external cause; Y99.9 Unspecified external cause status; Z66 Do not resuscitate; Z86.73 Personal history of transient ischemic attack (TIA), and cerebral infarction without residual deficits
CPT/HCPCS: 0241U-QW; 36415; 70450-TC; 71045-TC-FY; 72125-TC; 73030-TC-RT-FY; 73070-TC-RT-FY; 73110-TC-LT-FY; 73110-TC-RT-FY; 73130-TC-LT-FY; 73130-TC-RT-FY; 73560-TC-LT-FY; 80053; 83735; 85025; 90715; 93005; 93010; 94010; 94640; 97116-GP; 97161-GP; 99285-25; J0248; J1644